=== PATIENT | male | born 1960 | race Caucasian/White ===

== ENCOUNTER 2023-05-28 09:36 | Inpatient (IN) | payer OTHER ==
[2023-05-28 10:41] LABS: Absolute Lymphocytes (CBC) 0.9 K/uL (0.7-4.9); Hematocrit 35.1 % (39.6-49.0); Lymphocytes % 16.6 % (15.3-44.8); MCV 93.4 fL (80-100); MPV 10.5 fL (7.6-11.3); Platelets 151 thou/uL (152-406); RBC Red Blood Cell Count 3.76 M/uL (4.33-5.43)
[2023-05-28 10:59] LABS: Protime INR 1.19
--- NOTE | 2023-05-28 11:30 | RAD REPORT ---
EXAM DESCRIPTION: RAD - Chest Single View - 05/28/2023 10:59 am CLINICAL HISTORY: DYSPNEA Chest pain. COMPARISON: No comparisons FINDINGS: Portable technique limits examination quality. Mild to moderate pulmonary edema is seen. The heart is significantly enlarged in size. Trace pleural fluid bilaterally. IMPRESSION: Mild to moderate CHF pattern noted.
[2023-05-28 11:38] LABS: Bilirubin Direct 0.3 mg/dL (0-0.2); Bilirubin Indirect, Calculated 0.1 mg/dL (0.2-0.8); Bilirubin Total 0.4 mg/dL (0.2-1.0); Magnesium 1.7 mg/dL (1.6-2.4); Potassium 3.8 mEq/L (3.5-5.1); Protein, Total 6.7 g/dL (6.4-8.2)
[2023-05-28 11:43] LABS: Troponin High Sensitivity 941.9 pg/mL (<58.9)
--- NOTE | 2023-05-28 12:06 | EDPHYS ---
Physician Documentation [facility] Name: Buddy Franklin Jr Age: 63 yrs Sex: Male : 1960 Arrival Date: 05/28/2023 Time: 09:36 Bed 5 Private MD: ED Physician Henry Lane HPI: 05/28 11:12 This 63 yrs old Male presents to ER via Wheelchair with complaints of Breathing sp3 Difficulty. 11:12 63-year-old male with a history of hypertension, CHF now presents to the ED with 3 to 4 sp3 days of shortness of breath and lower extremity edema. Patient is a poor historian and does not recollect his doctors or his medications. Patient denies headache, fever, URI symptoms, cough, chest pain, abdominal pain, nausea, vomiting, diarrhea, syncope, near syncope, focal neurological deficit or weakness, rash, known sick contacts, travel history, prolonged immobilization, or any other signs or symptoms on ROS at this time.. Historical: - Allergies: 09:49 PENICILLINS; jl7 09:49 steroids; jl7 - PMHx: 09:49 Congestive heart failure; Hypertensive disorder; jl7 - Immunization history:: Adult Immunizations unknown. - Social history:: Smoking status: Patient/guardian denies using tobacco. ROS: 11:13 Constitutional: Negative for fever, chills, and weight loss, Eyes: Negative for injury, sp3 pain, redness, and discharge, ENT: Negative for injury, pain, and discharge, Neck: Negative for injury, pain, and swelling, Abdomen/GI: Negative for abdominal pain, nausea, vomiting, diarrhea, and constipation, Back: Negative for injury and pain, Skin: Negative for injury, rash, and discoloration, Neuro: Negative for headache, weakness, numbness, tingling, and seizure, Psych: Negative for depression, anxiety, suicide ideation, homicidal ideation, and hallucinations, Allergy/Immunology: Negative for hives, rash, and allergies, Endocrine: Negative for neck swelling, polydipsia, polyuria, polyphagia, and marked weight changes, Hematologic/Lymphatic: Negative for swollen nodes, abnormal bleeding, and unusual bruising, 11:13 All other systems are negative, Exam: 11:13 Constitutional: This is a well developed, well nourished patient who is awake, alert, sp3 and in no acute distress. Head/Face: Normocephalic, atraumatic. Eyes: Pupils equal round and reactive to light, extra-ocular motions intact. Lids and lashes normal. Conjunctiva and sclera are non-icteric and not injected. Cornea within normal limits. Periorbital areas with no swelling, redness, or edema. Neck: Trachea midline, no thyromegaly or masses palpated, and no cervical lymphadenopathy. Supple, full range of motion without nuchal rigidity, or vertebral point tenderness. No Meningismus. Chest/axilla: Normal chest wall appearance and motion. Nontender with no deformity. No lesions are appreciated. Cardiovascular: Regular rate and rhythm with a normal S1 and S2. No gallops, murmurs, or rubs. Normal PMI, no JVD. No pulse deficits. Abdomen/GI: Soft, non-tender, with normal bowel sounds. No distension or tympany. No guarding or rebound. No evidence of tenderness throughout. Back: No spinal tenderness. No costovertebral tenderness. Full range of motion. Skin: Warm, dry with normal turgor. Normal color with no rashes, no lesions, and no evidence of cellulitis. Neuro: Awake and alert, GCS 15, oriented to person, place, time, and situation. Cranial nerves II-XII grossly intact. Motor strength 5/5 in all extremities. Sensory grossly intact. Cerebellar exam normal. Normal gait. Psych: Awake, alert, with orientation to person, place and time. Behavior, mood, and affect are within normal limits. 11:13 ECG was reviewed by the Attending Physician. EKG demonstrates normal sinus rhythm at 91 bpm with incomplete right bundle branch block mild ectopy leftward axis and nonspecific diffuse ST/T changes without evidence of acute ischemia. Old EKG pending. Vital Signs: 09:46 BP 127 / 90; Pulse 50; Resp 19; Temp 98.1; Pulse Ox 100% ; Weight 134.72 kg; jl7 11:18 BP 122 / 99; Pulse 86; Resp 18; Pulse Ox 100% on R/A; ph 14:00 BP 124 / 89; Pulse 82; Resp 19; Pulse Ox 100% on R/A; me1 14:20 BP 127 / 91; Pulse 89; Resp 20; Pulse Ox 100% on R/A; me1 15:30 BP 119 / 78; Pulse 76; Resp 20; Pulse Ox 99% on R/A; me1 MDM: 09:53 Patient medically screened. sp3 11:26 Data reviewed: vital signs, nurses notes, old medical records, lab test result(s), EKG, sp3 radiologic studies. ED course: 63-year-old male with difficulty breathing and CHF history. We will assess with laboratory values, his chest x-ray and EKG. Differential diagnosis includes CHF, ACS, pulmonary pathology, among others. Not highly suspicious for dissection, sepsis, shock or any abdominal pathology. Disposition pending work-up and patient course.. 05/28 09:53 Order name: Basic Metabolic Panel; Complete Time: 11:44 sp3 05/28 09:53 Order name: CBC with Diff; Complete Time: 11:36 sp3 05/28 09:53 Order name: LFT's; Complete Time: 11:44 sp3 05/28 09:53 Order name: Magnesium; Complete Time: 11:44 sp3 05/28 09:53 Order name: NT PRO-BNP; Complete Time: 11:44 sp3 05/28 09:53 Order name: PT-INR; Complete Time: 11:36 sp3 05/28 09:53 Order name: Troponin HS; Complete Time: 11:44 sp3 05/28 12:39 Order name: Basic Metabolic Panel EDMS 05/28 12:39 Order name: Basic Metabolic Panel EDMS 05/28 12:39 Order name: Basic Metabolic Panel EDMS 05/28 12:39 Order name: Basic Metabolic Panel EDMS 05/28 12:39 Order name: CBC with Automated Diff EDMS 05/28 12:39 Order name: CBC with Automated Diff EDMS 05/28 12:39 Order name: CBC with Automated Diff EDMS 05/28 12:39 Order name: CBC with Automated Diff EDMS 05/28 12:42 Order name: Troponin High Sensitivity EDMS 05/28 14:17 Order name: Ptt, Activated ph 05/28 14:49 Order name: PTT, Activated Partial Thromb EDMS 05/28 09:53 Order name: XRAY Chest (1 view); Complete Time: 11:36 sp3 05/28 12:39 Order name: Echo with Doppler EDMS 05/28 09:53 Order name: EKG; Complete Time: 09:54 sp3 05/28 12:39 Order name: CONS Physician Consult EDDC 05/28 12:41 Order name: EKG Electrocardiogram EDMS 05/28 12:42 Order name: EKG Electrocardiogram EDMS 05/28 09:53 Order name: Cardiac monitoring; Complete Time: 11:05 sp3 05/28 09:53 Order name: EKG - Nurse/Tech; Complete Time: 10:48 sp3 05/28 09:53 Order name: IV Saline Lock; Complete Time: 10:48 sp3 05/28 09:53 Order name: Labs collected and sent; Complete Time: 10:48 sp3 05/28 09:53 Order name: O2 Per Protocol; Complete Time: 10:48 sp3 05/28 09:53 Order name: O2 Sat Monitoring; Complete Time: 10:48 sp3 Administered Medications: 12:35 Drug: Furosemide IVP 40 mg IVP once; give over 2 minutes Route: IVP; Site: right kc6 antecubital; 12:47 Follow up: Response: No adverse reaction kc6 Disposition Summary: 05/28/23 12:05 Hospitalization Ordered Notes: Hospitalization Status: Inpatient Admission sp3 Provider: Mg Corrales sp3 Condition: Stable sp3 Problem: an acute exacerbation sp3 Symptoms: have worsened sp3 Bed/Room Type: Standard sp3 Location: Telemetry/MedSurg (Inpatient)(05/28/23 15:22) ja1 Room Assignment: 430(05/28/23 15:22) ja1 Diagnosis - CHF, NSTEMI sp3 Forms: - Medication Reconciliation Form sp3 - SBAR form sp3 - Leadership Thank You Letter sp3 Signatures: Dispatcher [employer] [facility] Julian Ward RN RN jl7 Andrea Emery RN RN ja1 Henry Lane MD MD sp3 Lina Lopes RN RN kc6 Patricia Dinh RN RN kb3 Corrections: (The following items were deleted from the chart) 15:17 12:05 Telemetry/MedSurg (Inpatient) sp3 kb3 15:17 12:05 sp3 kb3 15:22 15:17 [facility] ER HOLD kb3 ja1 15:22 15:17 ERHOLD- kb3 ja1
--- NOTE | 2023-05-28 12:06 | ER ---
Nurse's Notes [facility] Name: Buddy Franklin Jr Age: 63 yrs Sex: Male : 1960 Arrival Date: 05/28/2023 Time: 09:36 Bed 5 Private MD: Diagnosis: CHF, NSTEMI Presentation: 05/28 09:46 Chief complaint: Patient states: Difficulty breathing, hx of CHF, reports increased jl7 difficulty when laying down. Coronavirus screen: Client presents with at least one sign or symptom that may indicate coronavirus-19. Ebola Screen: No symptoms or risks identified at this time. Initial Sepsis Screen: Does the patient meet any 2 criteria? No. Patient's initial sepsis screen is negative. Does the patient have a suspected source of infection? No. Patient's initial sepsis screen is negative. Risk Assessment: Do you want to hurt yourself or someone else? Patient reports no desire to harm self or others. Onset of symptoms was 2019. 09:46 Method Of Arrival: Wheelchair jl 09:46 Acuity: MORIAH 2 jl7 Historical: - Allergies: 09:49 PENICILLINS; jl7 09:49 steroids; jl7 - PMHx: 09:49 Congestive heart failure; Hypertensive disorder; jl7 - Immunization history:: Adult Immunizations unknown. - Social history:: Smoking status: Patient/guardian denies using tobacco. Screenin:02 [facility] ED Fall Risk Assessment (Adult) History of falling in the last 3 months, ph including since admission No falls in past 3 months (0 pts) Score/Fall Risk Level 0 - 2 = Low Risk Oriented to surroundings, Maintained a safe environment, Provided non-skid footwear, Hourly rounding (assess needs \T\ fall precautionary measures) done. Abuse screen: Denies threats or abuse. Denies injuries from another. Nutritional screening: No deficits noted. Tuberculosis screening: No symptoms or risk factors identified. Assessment: 10:47 Reassessment: Pt transported to radiology via wheelchair. jl7 11:19 General: Appears in no apparent distress. comfortable, Behavior is calm, cooperative, ph appropriate for age. Pain: Denies pain. Neuro: Level of Consciousness is awake, alert, obeys commands, Oriented to person, place, time, situation. Cardiovascular: Reports shortness of breath. Respiratory: Reports shortness of breath at rest on exertion Airway is patent Respiratory effort is even, unlabored, Respiratory pattern is regular, symmetrical. 12:19 Reassessment: Patient appears in no apparent distress at this time. No changes from [facility] previously documented assessment. Patient and/or family updated on plan of care and expected duration. Pain level reassessed. Patient is alert, oriented x 3, equal unlabored respirations, skin warm/dry/pink. 12:46 Reassessment: please see [facility] for further charting. kc6 Vital Signs: 09:46 BP 127 / 90; Pulse 50; Resp 19; Temp 98.1; Pulse Ox 100% ; Weight 134.72 kg; jl7 11:18 BP 122 / 99; Pulse 86; Resp 18; Pulse Ox 100% on R/A; ph 14:00 BP 124 / 89; Pulse 82; Resp 19; Pulse Ox 100% on R/A; me1 14:20 BP 127 / 91; Pulse 89; Resp 20; Pulse Ox 100% on R/A; me1 15:30 BP 119 / 78; Pulse 76; Resp 20; Pulse Ox 99% on R/A; me1 ED Course: 09:40 Patient arrived in ED. rg4 09:49 Triage completed. jl7 09:49 Arm band placed on right wrist. jl7 09:[address] MD is Attending Physician. sp3 10:25 Initial lab(s) drawn, by ED staff, sent to lab. Inserted saline lock: 20 gauge in left jl7 antecubital area, using aseptic technique. Blood collected. inserted by , yarn dry room worker. 10:56 Patient placed in an exam room, on a stretcher. ll1 11:01 XRAY Chest (1 view) In Process Unspecified. EDMS 11:01 Alyx Medrano, RN is Primary Nurse. ph 11:04 Patient has correct armband on for positive identification. Placed in gown. Bed in low ph position. Call light in reach. Side rails up X2. Client placed on continuous cardiac and pulse oximetry monitoring. NIBP monitoring applied. Door closed. Noise minimized. Warm blanket given. 12:05 Mg Corrales MD is Hospitalizing Provider. sp3 12:47 No provider procedures requiring assistance completed. Patient admitted, IV remains in [facility] place. Administered Medications: 12:35 Drug: Furosemide IVP 40 mg IVP once; give over 2 minutes Route: IVP; Site: right kc6 antecubital; 12:47 Follow up: Response: No adverse reaction kc6 Medication: 11:02 VIS not applicable for this client. ph Outcome: 12:05 Decision to Hospitalize by Provider. sp3 12:47 Admitted to ER Hold. Please see [facility] for further documentation. kc6 12:47 Condition: stable 12:47 Instructed on the need for admit, 16:29 Admitted to Tele accompanied by tech, via wheelchair, room 430, with chart, Other with me1 heparin gtts on iv pump Report called to RADHA Arriaga 16:34 Patient left the ED. me1 Signatures: Dispatcher [employer] EDAlyx England RN RN Asia Heller rg4 Julian aWrd RN RN jl7 Regan Skinner RN RN ll1 Henry Lane MD MD sp3 Lina Lopes RN RN kc6 Tasia Lindsey RN RN me1
[2023-05-28] MEDS ORDERED: NITROGLYCERIN 0.4 MG/TAB SL PRN (12:30)
[2023-05-28] MEDS ORDERED: ASPIRIN 325 MG TAB PO ONE (12:30)
[2023-05-28] MEDS ORDERED: FUROSEMIDE 40 MG/4 ML VIAL ONE (12:41)
--- NOTE | 2023-05-28 12:41 | P.HP ---
Certification for Inpatient With expected LOS: <2 Midnights Patient will require the following post-hospital care: None Practitioner: I am a practitioner with admitting privileges, knowledge of patient current condition, hospital course, and medical plan of care. Services: Services provided to patient in accordance with Admission requirements found in Title 42 Section 412.3 of the Code of Federal Regulations Patient History Date of Service: 05/28/23 Reason for admission: NSTEMI, CHF History of Present Illness: Mr. Franklin, 63-year-old male with a history of congestive heart failure, hypertensive disorder presented to the emergency room with complaints of chest pain. Patient reports pain is like pressure on his chest. Pain rated 7 out of 10. Patient is positive for mild shortness of breath, lower extremity edema. Patient denies headache, fever, or weight loss. Patient denies dizziness, or falls. Patient reports that patient has been taking care of her his for first a few weeks and he got too tired. ED course Vital signs blood pressure 127/90, heart rate 50, respiration 19, temperature 98.1, pulse ox 100% on room air EKG showing sinus rhythm bradycardia with left axis deviation, nonspecific ST T wave changes, QT/QTc 444/546. Initial lab work significant for elevated BUN 28, creatinine 1.44, GFR 55, troponin I- 941.9, BNP 95488, platelet count 151. Chest x-ray showing mild to moderate pulmonary edema, CHF pattern. admitting the patient with the diagnosis of acute on chronic CHF, NSTEMI. Allergies Penicillins Allergy (Verified 05/28/23 13:13) unk steroid Allergy (Uncoded 05/28/23 13:14) unk Home medications list reviewed: Yes - Past Medical/Surgical History Diabetic: No -: chf -: Arthritis -: Depression -: Rheumatoid arthritis -: Gout - Social History Smoking Status: Never smoker Alcohol use: No CD- Drugs: No Review of Systems 10-point ROS is otherwise unremarkable Physical Examination - Physical Exam General: Alert, Oriented x3, Cachectic HEENT: Normocephalic, PERRLA Neck: 2+ carotid pulse no bruit Respiratory: Clear to auscultation bilaterally, Diminished (On the bases) Cardiovascular: Edema (Bilateral lower extremity pitting edema 3+) Capillary refill: <2 Seconds Gastrointestinal: Normal bowel sounds, Soft and benign, Non-distended Musculoskeletal: No clubbing, Swelling (Bilateral lower extremity edema) Integumentary: No rashes, No breakdown Neurological: Normal gait, Normal speech, Normal affect - Studies Laboratory Data (last 24 hrs) 05/28/23 05/28/23 05/28/23 11:00 10:32 10:32 WBC 5.30 Hgb 11.4 L Hct 35.1 L Plt Count 151 L PT 13.1 H INR 1.19 Sodium 140 Potassium 3.8 BUN 28 H Creatinine 1.44 H Glucose 126 H Magnesium 1.7 Total Bilirubin 0.4 AST 32 ALT 29 Alkaline Phosphatase 90 Assessment and Plan - Plan Assessment and plan Chest pain NSTEMI * Acute, chest pain for 2 to 3 weeks, patient came to the hospital as the symptoms are getting worse * Initial Troponin I- 941.9, BNP 66853, platelet count 151.Vital signs blood pressure 127/90, heart rate 50, respiration 19, temperature 98.1, pulse ox 100% on room air EKG showing sinus rhythm bradycardia with left axis deviation, nonspecific ST T wave changes, QT/QTc 444/546. Admitting the patient to telemetry * Cardiology consulted-trend troponin, EKG aspirin statin, nitroglycerin, morphine as needed and oxygen to maintain the SPO2 above 92% * Plan for heart cath will be evaluated by the crm marketing specialist Acute on Chronic Decompensated Systolic/Diastolic Congestive Heart Failure with Reduced/Preserved Ejection Fraction * Acute on chronic. Mr. Franklin presents with symptoms of shortness of breath, dyspnea on exertion, lower extremity edema, and orthopnea. On exam, Mr. Franklin demonstrates pulmonary crackles, bilateral lower extremity edema.Mr. Franklin 'sdry weight is 134.71 kg, on admission. At this time, will admit for diuresis and medical optimization. * Home meds including Entresto 2426 p.o. twice daily, bumetanide 18 2 mg daily - Consult Cardiology - recommendations appreciated - Ordered transthoracic echocardiogram - Diuresis with Lasix for today - Hold home Furosemide/Torsemide/Bumetanide - Continue home bumetanide 1019 1 mg 2 tablet daily - Daily weights - Strict I/O - Cardiac diet, 2 L fluid restriction, 2 g Na restriction Hypertension Chronic controlled resume home medication CKD 3A * Chronic, worsening BUN 28, creatinine 1.44, GFR 55. Previous GFR unknown, most likely due to chronic conditions including hypertension and CHF * We will renal dose the medications, avoid nephrotoxins, NSAIDs Gout Rheumatoid arthritis * Chronic controlled on multiple medications including DMARDs (allopurinol 300 mg, colchicine 0.6 mg, indomethacin, methotrexate, folic acid) * Will resume home meds after discussing with the crm marketing specialist Diet n.p.o. for right now DVT prophylaxis Heparin CODE STATUS Full code Discharge Plan: Home Plan to discharge in: 48 Hours - Advance Directives Does patient have a Living Will: No Does patient have a Durable POA for Healthcare: No - Code Status/Comfort Care Code Status Assessed: Yes (Full code) Code Status: Full Code Critical Care: No Time Spent Managing Pts Care (In Minutes): 55 (Minutes)
[2023-05-28] MEDS: MORPHINE 4 MG/ML SYR IV PRN (13:15)
[2023-05-28] MEDS ORDERED: ASPIRIN 81 MG CHEWABLE TABLET ONE (13:30)
[2023-05-28] MEDS ORDERED: MORPHINE 4 MG/ML SYR ONE (13:30)
[2023-05-28] MEDS: HEPARIN/D5W 25,000 UNIT/500 ML BAG IV PRN (15:55)
[2023-05-28] MEDS ORDERED: HEPARIN/D5W 25,000 UNIT/500 ML BAG IV ONE (16:02)
[2023-05-28] MEDS ORDERED: HEPARIN 5000 UNIT/ML 1 ML VIAL ONE (16:02)
[2023-05-28] MEDS ORDERED: FUROSEMIDE 40 MG/4 ML VIAL IV SCH (17:00)
[2023-05-28] MEDS ORDERED: BUMETANIDE 1 MG TABLET PO SCH (21:00)
[2023-05-28] MEDS: BUMETANIDE 2.5 MG/10 ML VIAL IV SCH (21:36)
[2023-05-28] MEDS: METOPROLOL TAR 50 MG TAB PO SCH (21:37)
[2023-05-28] MEDS: ATORVASTATIN 40 MG TAB PO SCH (21:37)
[2023-05-29 02:05] LABS: Absolute Lymphocytes (CBC) 1.1 K/uL (0.7-4.9); Hematocrit 34.3 % (39.6-49.0); Lymphocytes % 24.2 % (15.3-44.8); MPV 10.5 fL (7.6-11.3); Platelets 143 thou/uL (152-406); RBC Red Blood Cell Count 3.69 M/uL (4.33-5.43)
[2023-05-29 02:19] LABS: Potassium 3.7 mEq/L (3.5-5.1)
--- NOTE | 2023-05-29 07:58 | ECHO ---
HEIGHT: 6 ft 0 in WEIGHT: 297 lb 0 oz DATE OF STUDY: 05/28/[address]: Jose Rosenberg NP 2-DIMENSIONAL: YES M.MODE: YES DOPPLER: YES COLOR FLOW: YES TDS: PORTABLE: YES DEFINITY: BUBBLE STUDY: DIAGNOSIS: CONGEATIVE HEART FAILURE CARDIAC HISTORY: CATHERIZATION: SURGERY: PROSTHETIC VALVE: PACEMAKER: MEASUREMENTS (cm) DIASTOLIC (NORMALS) SYSTOLIC (NORMALS) IVSd 1.2 (0.6-1.2) LA Diam 3.7 (1.9-4.0) LVEF 25-30% LVIDd 5.3 (3.5-5.7) LVIDs 5.0 (2.0-3.5) %FS 6% LVPWd 1.2 (0.6-1.2) Ao Diam 3.3 (2.0-3.7) 2 DIMENSIONAL ASSESSMENT: RIGHT ATRIUM: NORMAL LEFT ATRIUM: NORMAL RIGHT VENTRICLE: NORMAL LEFT VENTRICLE: DEPRESSED EJECTION FRACTION TRICUSPID VALVE: MODERATE TRICUSPID REGURGITATION MITRAL VALVE: MODERATE MITRAL REGURGITATION PULMONIC VALVE: NORMAL AORTIC VALVE: NORMAL PERICARDIAL EFFUSION: NONE AORTIC ROOT: NORMAL LEFT VENTRICULAR WALL MOTION: SEVERE GLOBAL HYPOKINESIS DOPPLER/COLOR FLOW: SEE BELOW COMMENTS: 1. SEVERELY DEPRESSED LEFT VENTRICULAR EJECTION FRACTION 25-30% 2. SEVERE GLOBAL HYPOKINESIS 3. SEVERE DIASTOLIC DYSFUNCTION 4. MODERATE MITRAL REGURGITATION 5. MODERATE TRICUSPID REGURGITATION 6. SEVERE PULMONARY HYPERTENSION WITH RIGHT VENTRICULAR SYSTOLIC PRESSURE GREATER THAN 60 mmHg. TECHNOLOGIST: JESSICA RUSSO
[2023-05-29] MEDS: METOPROLOL TAR 50 MG TAB PO SCH ×2 (09:05→20:23)
[2023-05-29] MEDS: BUMETANIDE 2.5 MG/10 ML VIAL IV SCH ×2 (09:05→20:24)
[2023-05-29] MEDS: ASPIRIN EC 81 MG TAB PO SCH (09:05)
[2023-05-29] MEDS ORDERED: Magnesium Sulfate 2gm IVPB 2 G/50 ML BAG IV ONE (14:31)
[2023-05-29] MEDS: HEPARIN/D5W 25,000 UNIT/500 ML BAG IV PRN (14:54)
--- NOTE | 2023-05-29 15:41 | EKG ---
Test Date: 2023-05-29 Test Time: 12:48:52 Vice President: RISA MEASUREMENT RESULTS: Intervals: Rate: 78 CA: 188 QRSD: 140 QT: 448 QTc: 510 [place]: P: 84 CA: 188 QRS: -67 T: 107 INTERPRETIVE STATEMENTS: Sinus rhythm with occasional premature ventricular complexes and fusion complexes Left axis deviation Nonspecific intraventricular block T wave abnormality, consider lateral ischemia Abnormal ECG Compared to ECG 05/28/2023 14:22:42 T-wave abnormality now present Possible ischemia now present Right bundle-branch block no longer present Myocardial infarct finding no longer present Electronically Signed On 05-29-23 15:40:03 CDT by Abisai Padron
--- NOTE | 2023-05-29 15:47 | EKG ---
Test Date: 2023-05-28 Test Time: 14:22:42 [employer] Analyst: MEASUREMENT RESULTS: Intervals: Rate: 83 MI: 174 QRSD: 142 QT: 444 QTc: 521 [place]: P: 52 MI: 174 QRS: -66 T: 99 INTERPRETIVE STATEMENTS: Sinus rhythm with occasional premature ventricular complexes and fusion complexes Left axis deviation Right bundle branch block Anterior infarct, age undetermined Abnormal ECG Compared to ECG 05/28/2023 10:23:30 Fusion complex(es) now present Ventricular premature complex(es) now present Right bundle-branch block now present Myocardial infarct finding still present Electronically Signed On 05-29-23 15:42:50 CDT by Abisai Padron
[2023-05-29] MEDS: MORPHINE 4 MG/ML SYR IV PRN (16:09)
[2023-05-29] MEDS ORDERED: LOPERAMIDE HCL 2 MG CAPSULE PO ONE (17:00)
--- NOTE | 2023-05-29 18:13 | P.PN ---
Subjective Date of Service: 05/29/23 Chief Complaint: NSTEMI, CHF No acute events overnight. He reports intermittent chest pain and shortness of breath. He reports orthopnea and lower extremity edema. He states that he has had a cardiac catheterization in 2020, which was "normal." He denies any wheezing or cough. Review of Systems 10-point ROS is otherwise unremarkable Respiratory: Shortness of Breath Cardiovascular: Chest Pain, Orthopnea, Edema Physical Examination - Vital Signs Temperature: 96.9 F Blood Pressure: 135/96 Pulse: 94 Respirations: 16 Pulse Ox (%): 100 - Physical Exam General: Alert, In no apparent distress, Oriented x3 HEENT: Atraumatic, Mucous membr. moist/pink, Sclerae nonicteric Neck: JVD distended Respiratory: Diminished, Crackles/rales (bibasilar) Cardiovascular: Regular rate/rhythm, Normal S1 S2, No gallops, No rubs, No murmurs, Edema (3+ BLE) Gastrointestinal: Normal bowel sounds, Soft and benign, Non-distended, No tenderness, No rebound, No guarding Musculoskeletal: No clubbing Integumentary: No rashes Neurological: Normal speech, Normal affect Assessment And Plan - Plan # Acute on Chronic Decompensated Systolic/Diastolic Congestive Heart Failure with Reduced Ejection Fraction # Several Pulmonary Hypertension # Moderate Mitral/Tricuspid Regurgitation - Consult Cardiology and spoke with Dr. Puente - Recommended IV bumetanide - NT-Pro BNP = 15,219 - Chest x-ray = "mild to moderate CHF pattern noted." - Transthoracic echocardiogram = "1. severely depressed left ventricular ejection fraction 25-30% 2. severe global hypokinesis 3. severe diastolic dysfunction 4. moderate mitral regurgitation 5. moderate tricuspid regurgitation 6. severe pulmonary hypertension with right ventricular systolic pressure greater than 60 mmHg." - Continue home metoprolol - Daily weights - Strict I/O - Cardiac diet, 1.5 L fluid restriction, 2 g Na restriction # Suspect Type II Non-ST Segment Elevation Myocardial Infarction (Demand Ischemia) due to above # Hypertension - Evaluation thus far: - EKG: without STEMI criteria, trend - Serial troponin: 941.9 -> 971.8 -> 851.8 -> 953.3 - Chest x-ray = "mild to moderate CHF pattern noted." - Transthoracic echocardiogram = "1. severely depressed left ventricular ejection fraction 25-30% 2. severe global hypokinesis 3. severe diastolic dysfunction 4. moderate mitral regurgitation 5. moderate tricuspid regurgitation 6. severe pulmonary hypertension with right ventricular systolic pressure greater than 60 mmHg." - Management plan: - Consult Cardiology and spoke with Dr. Puente - Recommended heparin drip - Continue aspirin, atorvastatin, metoprolol - If CAD is confirmed, plan to start NICO-inhibitor/ARB as tolerated # Chronic Kidney Disease Stage III - Creatinine stable - Urinalysis pending - Monitor creatinine and urine output - Obtain renal ultrasound if worsening - Renally dose medications # Rheumatoid Arthritis # Depression # Gout - Reconcile home medications once verified Mg Corrales M.D.
--- NOTE | 2023-05-29 20:10 | CON ---
Date of Consultation: 05/29/2023 Reason For Consultation: Elevated troponin and heart failure. History Of Present Illness: 63-year-old male, history of congestive heart failure and hypertension, presented to the emergency room with shortness of breath, lower extremity edema, and chest pain, pres sure like. He said that he had a cardiac catheterization at [facility] and he was told that there were no blockages within the recent past. He denies having active chest pain right now. Past Medical History: As outlined above in the HPI. Medication: Refer reconciliation sheet for detailed list. Allergies: PENICILLIN. Family History: No mention of coronary artery disease or cancer. Social History: Does not smoke or drink. Does not use any drugs. Review of Systems: All systems reviewed are negative except as mentioned in the HPI. Physical Examination: Vital Signs: Reviewed. Head and Neck: Pupils are equal, reactive to light. Intact eye movements. No JVD. No cervical ismael nopathy. Neck: Supple. Thyroid is not enlarged. Lungs: Clear to auscultation bilaterally. No rhonchi, wheezing, or crackles. No accessory muscle u se. Heart: Regular rate and rhythm. No extra sounds. Abdomen: Soft, nontender. Bowel sounds positive. No organomegaly. No rigidity or rebound. Extremities: No clubbing, cyanosis. Positive edema. Neurologic: Alert, awake, oriented x3. No acute focal deficits appreciated. Investigations: Troponin 900 and then went down to 800 and then 900 again. BUN 29, creatinine 1.39. NT-proBNP is 15,000 and his hemoglobin is 11.2. Assessment/recommendation: 1.Acute on chronic systolic heart failure exacerbation. Agree with IV diuresis with Lasix 40 mg q.1 2 hours. Monitor BUN, creatinine, electrolytes. 2.Elevated troponin with chest pain. He claims a history of coronary angiogram being normal. We wi ll try to obtain records. I do not believe this is an acute coronary syndrome. Likely, this is darlyn nd ischemia. However, recommend aspirin and continue beta-francois and statin. 3.Dyslipidemia. Continue statin. Further recommendation will be made after we get the records from [facility]. SR/MODL Voice ID: [id number] Report ID: [id number]
[2023-05-29] MEDS: ATORVASTATIN 40 MG TAB PO SCH (20:23)
[2023-05-30 06:45] LABS: Absolute Lymphocytes (CBC) 1.1 K/uL (0.7-4.9); Hematocrit 35.2 % (39.6-49.0); MCV 92.7 fL (80-100); MPV 10.7 fL (7.6-11.3); Platelets 153 thou/uL (152-406)
[2023-05-30 07:04] LABS: Magnesium 1.6 mg/dL (1.6-2.4); Phosphorus 4.1 mg/dL (2.5-4.9); Potassium 3.6 mEq/L (3.5-5.1)
[2023-05-30 07:30] LABS: Troponin High Sensitivity 858.1 pg/mL (<58.9)
[2023-05-30] MEDS: METOPROLOL TAR 50 MG TAB PO SCH ×2 (08:28→20:45)
[2023-05-30] MEDS: ASPIRIN EC 81 MG TAB PO SCH (08:28)
[2023-05-30] MEDS: BUMETANIDE 2.5 MG/10 ML VIAL IV SCH ×2 (08:35→20:45)
[2023-05-30] MEDS: HEPARIN/D5W 25,000 UNIT/500 ML BAG IV PRN (14:11)
[2023-05-30] MEDS ORDERED: METOLAZONE 5 MG TABLET PO ONE (15:00)
--- NOTE | 2023-05-30 15:31 | P.PN ---
Subjective Date of Service: 05/30/23 Chief Complaint: NSTEMI, CHF No new events. He reports that his breathing is improving. His net I/O since admission is -1480 mL. He continues to experience orthopnea and lower extremity edema. He denies any chest pain this morning. Review of Systems 10-point ROS is otherwise unremarkable Cardiovascular: Orthopnea, Edema Physical Examination - Vital Signs Temperature: 97.4 F Blood Pressure: 134/91 Pulse: 91 Respirations: 20 Pulse Ox (%): 100 - Physical Exam General: Alert, In no apparent distress, Oriented x3 HEENT: Atraumatic, Mucous membr. moist/pink, Sclerae nonicteric Neck: JVD distended Respiratory: Crackles/rales (bibasilar) Cardiovascular: Regular rate/rhythm, Edema (2-3+ BLE), Systolic murmur Gastrointestinal: Normal bowel sounds, Soft and benign, No tenderness Musculoskeletal: No clubbing Integumentary: No rashes Neurological: Normal speech, Normal affect Assessment And Plan - Plan # Acute on Chronic Decompensated Systolic/Diastolic Congestive Heart Failure with Reduced Ejection Fraction # Severe Pulmonary Hypertension # Moderate Mitral/Tricuspid Regurgitation - Consult Cardiology and he was evaluated by Dr. Puente - Recommended IV bumetanide + metolazone x 1 - NT-Pro BNP = 15,219 - Chest x-ray = "mild to moderate CHF pattern noted." - Transthoracic echocardiogram = "1. severely depressed left ventricular ejection fraction 25-30% 2. severe global hypokinesis 3. severe diastolic dysfunction 4. moderate mitral regurgitation 5. moderate tricuspid regurgitation 6. severe pulmonary hypertension with right ventricular systolic pressure greater than 60 mmHg." - Continue home metoprolol - Daily weights - Strict I/O - Cardiac diet, 1.5 L fluid restriction, 2 g Na restriction # Suspect Type II Non-ST Segment Elevation Myocardial Infarction (Demand Ischemia) due to above # Hypertension - Evaluation thus far: - EKG: without STEMI criteria, trend - Serial troponin: 941.9 -> 971.8 -> 851.8 -> 953.3 - Chest x-ray = "mild to moderate CHF pattern noted." - Transthoracic echocardiogram = "1. severely depressed left ventricular ejection fraction 25-30% 2. severe global hypokinesis 3. severe diastolic dysfunction 4. moderate mitral regurgitation 5. moderate tricuspid regurgitation 6. severe pulmonary hypertension with right ventricular systolic pressure greater than 60 mmHg." - Management plan: - Consult Cardiology and he was evaluated by Dr. Puente - Discontinued heparin drip - Continue aspirin, atorvastatin, metoprolol - If CAD is confirmed, plan to start NICO-inhibitor/ARB as tolerated # Chronic Kidney Disease Stage III - Creatinine stable - Urinalysis pending - Monitor creatinine and urine output - Obtain renal ultrasound if worsening - Renally dose medications # Rheumatoid Arthritis # Depression # Gout - Reconcile home medications once verified Mg Corrales M.D.
--- NOTE | 2023-05-30 16:07 | P.PN ---
Subjective Date of Service: 05/30/23 Chief Complaint: NSTEMI, CHF Subjective: No new changes, Doing well Review of Systems 10-point ROS is otherwise unremarkable Physical Examination - Vital Signs Temperature: 97.4 F Blood Pressure: 134/91 Pulse: 91 Respirations: 20 Pulse Ox (%): 100 - Physical Exam General: Alert, In no apparent distress, Oriented x3 HEENT: Atraumatic Neck: Supple Respiratory: Clear to auscultation bilaterally Cardiovascular: Regular rate/rhythm Gastrointestinal: Soft and benign Assessment And Plan - Plan 1. CHF: Acute on chronic, systolic and diastolic, nonischemic, patient has coronary angiogram done about 3 years ago and showed normal coronaries. Continue Bumex 2 mg IV twice daily, give 1 dose of metolazone 10 mg, and likely will switch to Bumex p.o. tomorrow and possible discharge tomorrow. 2. Platelet troponin: Type II [place] from CHF and not ACS, will discontinue heparin drip
[2023-05-30] MEDS: ATORVASTATIN 40 MG TAB PO SCH (20:45)
[2023-05-30] MEDS: MORPHINE 4 MG/ML SYR IV PRN (20:49)
[2023-05-30] MEDS ORDERED: Magnesium Sulfate 2gm IVPB 2 G/50 ML BAG IV ONE (21:44)
[2023-05-31 02:18] LABS: C.diff Antigen/Toxin Ag pos : Tox neg (NEG : NEG)
[2023-05-31 06:41] LABS: Absolute Lymphocytes (CBC) 1.2 K/uL (0.7-4.9); Hematocrit 34.9 % (39.6-49.0); Lymphocytes % 20.7 % (15.3-44.8); MPV 10.6 fL (7.6-11.3); Platelets 170 thou/uL (152-406)
[2023-05-31 06:53] LABS: Magnesium 1.7 mg/dL (1.6-2.4); Potassium 3.4 mEq/L (3.5-5.1)
[2023-05-31] MEDS: METOPROLOL TAR 50 MG TAB PO SCH ×2 (08:08→20:46)
[2023-05-31] MEDS: ASPIRIN EC 81 MG TAB PO SCH (08:08)
[2023-05-31] MEDS: BUMETANIDE 2.5 MG/10 ML VIAL IV SCH ×2 (08:08→21:00)
[2023-05-31] MEDS ORDERED: Magnesium Sulfate 2gm IVPB 2 G/50 ML BAG IV ONE (09:02)
[2023-05-31] MEDS ORDERED: POTASSIUM CL SA 10 MEQ TAB PO ONE (09:15)
--- NOTE | 2023-05-31 11:00 | P.PN ---
Subjective Date of Service: 05/31/23 Chief Complaint: NSTEMI, CHF This morning, he reports that his breathing and swelling have improved signifcantly. However, he reports having 10 watery bowel movements yesterday. His C. Difficile stool antigen was positive. PO vancomycin started and Infectious Diseases was consulted. He denies any chest pain this morning. Review of Systems 10-point ROS is otherwise unremarkable Respiratory: Shortness of Breath Cardiovascular: Orthopnea, Edema Gastrointestinal: Diarrhea Physical Examination - Vital Signs Temperature: 97.1 F Blood Pressure: 137/75 Pulse: 63 Respirations: 16 Pulse Ox (%): 98 - Physical Exam General: Alert, In no apparent distress, Oriented x3 HEENT: Atraumatic, Mucous membr. moist/pink, Sclerae nonicteric Neck: JVD not distended Respiratory: Diminished, Crackles/rales (bibasilar) Cardiovascular: Regular rate/rhythm, No murmurs, Edema (2+ BLE) Gastrointestinal: Normal bowel sounds, Soft and benign, Non-distended, No tenderness, No rebound, No guarding Integumentary: No rashes Neurological: Normal speech, Normal affect Assessment And Plan - Plan # Acute on Chronic Decompensated Systolic/Diastolic Congestive Heart Failure with Reduced Ejection Fraction # Severe Pulmonary Hypertension # Moderate Mitral/Tricuspid Regurgitation - Consult Cardiology and he was evaluated by Dr. Puente - IV diuresis per Cardiology - NT-Pro BNP = 15,219 - Chest x-ray = "mild to moderate CHF pattern noted." - Transthoracic echocardiogram = "1. severely depressed left ventricular ejection fraction 25-30% 2. severe global hypokinesis 3. severe diastolic dysfunction 4. moderate mitral regurgitation 5. moderate tricuspid regurgitation 6. severe pulmonary hypertension with right ventricular systolic pressure greater than 60 mmHg." - Continue home metoprolol - Daily weights - Strict I/O - Cardiac diet, 1.5 L fluid restriction, 2 g Na restriction # Suspect Type II Non-ST Segment Elevation Myocardial Infarction (Demand Ischemia) due to above # Hypertension - Evaluation thus far: - EKG: without STEMI criteria, trend - Serial troponin: 941.9 -> 971.8 -> 851.8 -> 953.3 - Chest x-ray = "mild to moderate CHF pattern noted." - Transthoracic echocardiogram = "1. severely depressed left ventricular ejection fraction 25-30% 2. severe global hypokinesis 3. severe diastolic dysfunction 4. moderate mitral regurgitation 5. moderate tricuspid regurgitation 6. severe pulmonary hypertension with right ventricular systolic pressure greater than 60 mmHg." - Management plan: - Consult Cardiology and he was evaluated by Dr. Puente - Continue aspirin, atorvastatin, metoprolol - If CAD is confirmed, plan to start NICO-inhibitor/ARB as tolerated # Clostridioides Difficile Colitis - Reports having 10 watery bowel movements yesterday. - C. Difficile antigen positive, but toxin negative - Consulted Infectious Diseases - Started vancomycin # KDIGO Stage I Acute Kidney Injury on Chronic Kidney Disease Stage III - Likely cardiorenal syndrome - Creatinine: 1.44 -> 1.38 -> 1.22 -> 1.11 - Urinalysis pending - Monitor creatinine and urine output - Obtain renal ultrasound if worsening - Renally dose medications # Rheumatoid Arthritis # Depression # Gout - Reconcile home medications once verified Mg Corrales M.D.
[2023-05-31] MEDS: VANCOMYCIN ORAL SOLN 250 MG/5 ML OSYR PO SCH ×3 (11:22→23:53)
--- NOTE | 2023-05-31 12:54 | P.PN ---
Subjective Date of Service: 05/31/23 Chief Complaint: NSTEMI, CHF Subjective: No new changes, Doing well Physical Examination - Vital Signs Temperature: 97.1 F Blood Pressure: 137/75 Pulse: 63 Respirations: 16 Pulse Ox (%): 98 - Physical Exam General: In no apparent distress HEENT: PERRLA Neck: JVD not distended Respiratory: Clear to auscultation bilaterally Cardiovascular: Regular rate/rhythm Gastrointestinal: No tenderness Neurological: Normal speech Assessment And Plan - Plan 1. CHF: Acute on chronic, systolic and diastolic, nonischemic, patient has coronary angiogram done about 3 years ago and showed normal coronaries. Switch Bumex to 2 mg PO twice daily. Has PVCs , replace Magnesium and Potassium, will order LifeVest. d/w Pt and nurse. 2. Elevated troponin: Type II [place] from CHF and not ACS, will discontinue heparin drip 3. Hypokalemia and Hypomagnesemia: replace both.
[2023-05-31] MEDS: ATORVASTATIN 40 MG TAB PO SCH (20:46)
[2023-05-31] MEDS: MORPHINE 4 MG/ML SYR IV PRN (21:18)
[2023-06-01 04:47] LABS: Magnesium 1.8 mg/dL (1.6-2.4); Potassium 3.9 mEq/L (3.5-5.1)
[2023-06-01] MEDS: VANCOMYCIN ORAL SOLN 250 MG/5 ML OSYR PO SCH ×3 (05:19→17:22)
--- NOTE | 2023-06-01 05:37 | P.PN ---
Date of Service: 06/01/23 Subjective: Physical Exam: Vitals: reviewed GEN: Alert, oriented, NAD HEENT: Normal conjunctiva, sclera anicteric CV: Regular rate & rhythm, 2+BLE edema Pulm: Diminished, Crackles/rales (bibasilar) ABD: Soft, nontender, nondistended MSK: No joint tenderness Integumentary: No rashes Neuro: Normal speech, normal affect Problem List: Acute on Chronic Decompensated Systolic/Diastolic CHF with Reduced EF NSTEMI Severe Pulmonary Hypertension Moderate Mitral/Tricuspid Regurgitation Hypertension Clostridioides Difficile Colitis CHUCK on CKD3 Rheumatoid Arthritis Depression Gout Plan: Cardiology consulted continue bumex echo: 25-30% EF, severe global hypokinesis, severe diastolic dysfunction, moderate MR, moderate TR, severe pulm htn Daily weights and Strict I/O Cardiac diet, 1.5 L fluid restriction, 2 g Na restriction EKG without STEMI criteria Troponins elevated; 941.9 -> 971.8 -> 851.8 -> 953.3 Continue aspirin, atorvastatin, metoprolol PRN nitroglycerin Reports having 10 watery bowel movements 05/30 C. Difficile antigen positive, but toxin negative ID consulted continue PO vancomycin Monitor renal function Renally dose medications Confirm home medications, restart as appropriate
[2023-06-01] MEDS: METOPROLOL TAR 50 MG TAB PO SCH ×2 (09:00→21:13)
[2023-06-01] MEDS ORDERED: Magnesium Sulfate 2gm IVPB 2 G/50 ML BAG IV ONE (09:01)
--- NOTE | 2023-06-01 09:36 | P.CNS ---
Date of Consult: 06/01/23 Reason for Consult: c.diff Chief Complaint: NSTEMI, CHF History of Present Illness: Patient is a 63-year-old male with a past medical history of congestive heart failure, hypertension, RA, gout who presented to the ED with complaints of chest pain, shortness of breath and lower extremity swelling. Patient was admitted for acute on chronic decompensated systolic/diastolic congestive heart failure. Patient was also found to be positive for C. difficile. Infectious disease was consulted. Allergies Penicillins Allergy (Verified 05/28/23 13:13) unk steroid Allergy (Uncoded 05/28/23 13:14) unk Home medications list reviewed: Yes Home Medications: Allopurinol 1 tab PO DAILY 05/28/23 Amitriptyline HCl 1 tab PO BEDTIME 05/28/23 Bumetanide 2 mg PO DAILY 05/28/23 Colchicine 1 tab PO DAILY 05/28/23 Diclofenac Na [Voltaren D.r*] 1 tab PO BID 05/28/23 Ergocalciferol (Vitamin D2) [Vitamin D2] 1 tab PO DAILY 05/28/23 Folic Acid 1 tab PO DAILY 05/28/23 Indomethacin 1 tab PO TID 05/28/23 Magnesium Oxide [Magnesium] 1 tab PO DAILY 05/28/23 Methotrexate Sodium [Methotrexate] 1 tab PO TID 05/28/23 Metoprolol Succinate [Toprol Xl*] 1 tab PO DAILY 05/28/23 Potassium Chloride 1 packet PO BID 05/28/23 Sacubitril/Valsartan [Entresto 24 mg-26 mg Tablet] 1 tab PO DAILY 05/28/23 Ubidecarenone [Co Q-10] 1 tab PO DAILY 05/28/23 - Past Medical/Surgical History Diabetic: No -: chf -: Arthritis -: Depression -: Rheumatoid arthritis -: Gout -: HTN -: SHOULDER LEFT -: LEFT TOE AMPUTATION -: ANGIOGRAM CARDIAC [facility] [place] 2021 - Social History Alcohol use: No CD- Drugs: No Caffeine use: Yes Place of Residence: Home Review of Systems General: Weakness Respiratory: Shortness of Breath Gastrointestinal: Abdominal Pain Physical Examination Temp Pulse Resp BP Pulse Ox 97.3 F 105 H 16 99/68 95 06/01/23 08:00 06/01/23 08:00 06/01/23 08:00 06/01/23 08:00 06/01/23 08:00 General: Alert, In no apparent distress, Oriented x3 HEENT: Atraumatic, Normocephalic Respiratory: Normal air movement, Diminished, Other (on room air) Cardiovascular: Regular rate/rhythm, Edema (BLE) Gastrointestinal: Normal bowel sounds, Tenderness (mid-lower abdomen) Integumentary: No rashes Neurological: Normal speech, Normal tone Laboratory data -Reviewed Microbiology data -Reviewed Imagings Data: -Reviewed Conclusions/Impression: Problem list C. difficile colitis Acute on chronic systolic/diastolic CHF Severe pulmonary hypertension Moderate mitral and tricuspid regurgitation NSTEMI Hypertension Rheumatoid arthritis Gout C. difficile colitis -C. difficile antigen positive, toxin negative -Patient reported having ~10 liquid bowel movements on 05/30 -Started on vancomycin PO 05/31 - No previous history of C.diff in the past WBC WNL Afebrile. Acute on chronic systolic/diastolic CHF NSTEMI Pulmonary hypertension -Cardiology following Recommendations - C.diff: Continue with Vancomycin PO x 10 days (05/31-05/09) - Monitor for worsening abdominal pain and diarrhea - Continue with supportive care - Follow up with cardiology as outpatient Case discussed with Giovana Avilez
[2023-06-01] MEDS: ASPIRIN EC 81 MG TAB PO SCH (09:55)
[2023-06-01] MEDS: BUMETANIDE 2.5 MG/10 ML VIAL IV SCH ×2 (09:56→21:00)
[2023-06-01] MEDS ORDERED: KCL 20 MEQ/100 mL IVPB 20 MEQ/100 ML BAG IV ONE (10:00)
[2023-06-01] MEDS: ATORVASTATIN 40 MG TAB PO SCH (21:13)
[2023-06-01] MEDS: MORPHINE 4 MG/ML SYR IV PRN (21:40)
[2023-06-02] MEDS: VANCOMYCIN ORAL SOLN 250 MG/5 ML OSYR PO SCH ×4 (02:02→18:00)
[2023-06-02] MEDS ORDERED: LACTOBACILLUS/ACIDOPHILUS TAB PO SCH (08:00)
--- NOTE | 2023-06-02 08:04 | EKG ---
Test Date: 2023-05-28 Test Time: 10:23:30 Coding Clerks Supervisor: GALE MEASUREMENT RESULTS: Intervals: Rate: 91 OK: 174 QRSD: 140 QT: 444 QTc: 546 [place]: P: 10 OK: 174 QRS: -63 T: 78 INTERPRETIVE STATEMENTS: Sinus rhythm with PVCs Left axis deviation Nonspecific intraventricular block Cannot rule out Anteroseptal infarct, age undetermined Abnormal ECG Compared to ECG 12/31/2006 14:15:00 Left-axis deviation now present Myocardial infarct finding now present Left anterior fascicular block no longer present Electronically Signed On 06-02-23 07:56:31 CDT by Abisai Padron
[2023-06-02] MEDS: METOPROLOL TAR 50 MG TAB PO SCH ×2 (09:00→20:24)
[2023-06-02] MEDS: BUMETANIDE 2.5 MG/10 ML VIAL IV SCH ×2 (09:00→20:25)
[2023-06-02] MEDS: LACTOBACILLUS/ACIDOPHILUS TAB PO SCH (09:12)
[2023-06-02] MEDS: ASPIRIN EC 81 MG TAB PO SCH (09:12)
--- NOTE | 2023-06-02 13:36 | P.PN ---
Date of Service: 06/02/23 Chief Complaint: NSTEMI, CHF Subjective: No acute events reported overnight. In no apparent distress. Denies any new or worsening complaints. Reports diarrhea resolved. Physical Examination Temp Pulse Resp BP Pulse Ox 97.8 F 93 H 14 102/84 98 06/02/23 07:20 06/02/23 07:20 06/02/23 07:20 06/02/23 07:20 06/02/23 07:20 General: Alert, In no apparent distress, Oriented x3 HEENT: Atraumatic, Normocephalic Respiratory: Normal air movement, Diminished. On room air. Cardiovascular: Regular rate/rhythm. BLE edema. Gastrointestinal: Normal bowel sounds, Tenderness (mid-lower abdomen) Integumentary: No rashes Neurological: Normal speech, Normal tone Laboratory data -Reviewed Microbiology data -Reviewed Imagings Data: -Reviewed Medications List: Reviewed Assessment and Plan Problem list C. difficile colitis Acute on chronic systolic/diastolic CHF Severe pulmonary hypertension Moderate mitral and tricuspid regurgitation NSTEMI Hypertension Rheumatoid arthritis Gout C. difficile colitis -C. difficile antigen positive, toxin negative -Patient reported having ~10 liquid bowel movements on 05/30 -Started on vancomycin PO 05/31 - No previous history of C.diff in the past WBC WNL Afebrile. Acute on chronic systolic/diastolic CHF NSTEMI Pulmonary hypertension -Cardiology following Recommendations - C.diff: Continue with Vancomycin PO x 10 days (05/31-05/09). Improvement in diarrhea and abdominal pain. - Continue with supportive care - Follow up with cardiology as outpatient Case discussed with Giovana Avilez
[2023-06-02] MEDS: ATORVASTATIN 40 MG TAB PO SCH (20:24)
[2023-06-02] MEDS: MORPHINE 4 MG/ML SYR IV PRN (20:33)
[2023-06-03] MEDS: VANCOMYCIN ORAL SOLN 250 MG/5 ML OSYR PO SCH ×4 (00:57→16:27)
[2023-06-03] MEDS: LACTOBACILLUS/ACIDOPHILUS TAB PO SCH (08:00)
[2023-06-03] MEDS: ASPIRIN EC 81 MG TAB PO SCH (09:19)
[2023-06-03] MEDS: METOPROLOL TAR 50 MG TAB PO SCH ×2 (09:19→21:12)
[2023-06-03] MEDS: BUMETANIDE 2.5 MG/10 ML VIAL IV SCH (09:20)
--- NOTE | 2023-06-03 09:20 | P.PN ---
Date of Service: 06/03/23 Chief Complaint: NSTEMI, CHF Subjective: Patient ambulating around in room. In no apparent distress. Breathing comfortably on room air. No acute events reported overnight. + abdominal cramping, intermittent + diarrhea He reports normal stool 24-48 hours ago, now with diarrhea again and intermittent abdominal cramping. Physical Examination Temp Pulse Resp BP Pulse Ox 99.4 F 102 H 17 117/86 90 L 06/03/23 08:00 06/03/23 08:00 06/03/23 08:00 06/03/23 08:00 06/03/23 08:00 General: Alert, In no apparent distress, Oriented x3 HEENT: Atraumatic, Normocephalic Respiratory: Normal air movement, Diminished. On room air. Cardiovascular: Regular rate/rhythm. BLE edema. Gastrointestinal: Normal bowel sounds, Tenderness (mid-lower abdomen) Integumentary: No rashes Neurological: Normal speech, Normal tone Laboratory data -Reviewed Microbiology data -Reviewed Imagings Data: -Reviewed Medications List: Reviewed Assessment and Plan Problem list C. difficile colitis Acute on chronic systolic/diastolic CHF Severe pulmonary hypertension Moderate mitral and tricuspid regurgitation NSTEMI Hypertension Rheumatoid arthritis Gout C. difficile colitis -C. difficile antigen positive, toxin negative -Patient reported having ~10 liquid bowel movements on 05/30 -Started on vancomycin PO 05/31 - No previous history of C.diff in the past - On probiotic WBC WNL Afebrile. Acute on chronic systolic/diastolic CHF NSTEMI Pulmonary hypertension -Cardiology following Recommendations - C.diff: Continue with Vancomycin PO x 10 days (05/31-05/09). On day 4 of . - Continue with supportive care - Follow up with cardiology as outpatient Plan of care discussed with patient at bedside. Case discussed with Giovana Avilez
[2023-06-03 15:24] LABS: Absolute Lymphocytes (CBC) 0.9 K/uL (0.7-4.9); Hematocrit 37.7 % (39.6-49.0); Lymphocytes % 13.8 % (15.3-44.8); MCV 92.1 fL (80-100); MPV 11.1 fL (7.6-11.3); Platelets 206 thou/uL (152-406)
[2023-06-03 15:39] LABS: Bilirubin Total 0.5 mg/dL (0.2-1.0); Magnesium 1.6 mg/dL (1.6-2.4); Phosphorus 3.6 mg/dL (2.5-4.9); Protein, Total 7.2 g/dL (6.4-8.2)
[2023-06-03] MEDS ORDERED: BUMETANIDE 1 MG/4 ML VIAL IV ONE (17:16)
[2023-06-03] MEDS ORDERED: LOPERAMIDE HCL 2 MG CAPSULE PO STA (17:17)
[2023-06-03] MEDS ORDERED: Magnesium Sulfate 2gm IVPB 2 G/50 ML BAG IV ONE ×2 (17:18→20:00)
[2023-06-03] MEDS ORDERED: FENTANYL CITR 100 MCG/2 ML IV ONE (17:19)
[2023-06-03] MEDS: ATORVASTATIN 40 MG TAB PO SCH (21:12)
[2023-06-04] MEDS: VANCOMYCIN ORAL SOLN 250 MG/5 ML OSYR PO SCH ×3 (00:23→12:00)
[2023-06-04] MEDS ORDERED: BUMETANIDE 1 MG TABLET PO SCH (07:30)
[2023-06-04] MEDS: LACTOBACILLUS/ACIDOPHILUS TAB PO SCH (08:00)
--- NOTE | 2023-06-04 08:07 | P.PN ---
Date of Service: 06/04/23 Chief Complaint: NSTEMI, CHF Subjective: Patient sitting up on side of bed eating breakfast. In no apparent distress. Denies any new or worsening complaints at this time. Reports improvement in abdominal pain/diarrhea compared to yesterday. He states he wants to go home. Pending Life Vest approval prior to discharge. Physical Examination Temp Pulse Resp BP Pulse Ox 96.4 F L 84 17 120/98 H 91 06/04/23 04:00 06/04/23 04:00 06/04/23 04:00 06/04/23 04:00 06/04/23 04:00 General: Alert, In no apparent distress, Oriented x3 HEENT: Atraumatic, Normocephalic Respiratory: Normal air movement, Diminished. On room air. Cardiovascular: Regular rate/rhythm. BLE edema. Gastrointestinal: Normal bowel sounds. Mild tenderness mid-lower abdomen. Msk: Moves all extremities. Ambulates independently Integumentary: No rashes Neurological: Normal speech, Normal tone Laboratory data -Reviewed Microbiology data -Reviewed Imagings Data: -Reviewed Medications List: Reviewed Assessment and Plan Problem list C. difficile colitis Acute on chronic systolic/diastolic CHF Severe pulmonary hypertension Moderate mitral and tricuspid regurgitation NSTEMI Hypertension Rheumatoid arthritis Gout C. difficile colitis -C. difficile antigen positive, toxin negative -Patient reported having ~10 liquid bowel movements on 05/30 -Started on vancomycin PO 05/31 - No previous history of C.diff in the past - On probiotic WBC WNL Afebrile. Acute on chronic systolic/diastolic CHF NSTEMI Pulmonary hypertension -Cardiology following Recommendations - C.diff: Continue with Vancomycin PO x 10 days (05/31-05/09). On day 5 of . - Continue with supportive care - Follow up with cardiology as outpatient Plan of care discussed with patient at bedside. Pending Life Vest prior to discharge. CM/SS following. Case discussed with Giovana Avilez
--- NOTE | 2023-06-04 09:52 | EKG ---
Test Date: 2023-05-30 Test Time: 21:30:30 Senior Recruiter: LANDON MEASUREMENT RESULTS: Intervals: Rate: 104 ME: 166 QRSD: 134 QT: 390 QTc: 512 [place]: P: 78 ME: 166 QRS: -75 T: 90 INTERPRETIVE STATEMENTS: Sinus rhythm with frequent PVCs Left axis deviation Nonspecific intraventricular block Cannot rule out Septal infarct, age undetermined Abnormal ECG Compared to ECG 05/30/2023 21:29:37 Myocardial infarct finding now present Electronically Signed On 06-04-23 09:47:24 CDT by Abisai Padron
--- NOTE | 2023-06-04 09:52 | EKG ---
Test Date: 2023-05-30 Test Time: 21:29:37 Museum Curator: LANDON MEASUREMENT RESULTS: Intervals: Rate: 105 [place]: 162 QRSD: 136 QT: 394 QTc: 520 [place]: P: 68 [place]: 162 QRS: -73 T: 90 INTERPRETIVE STATEMENTS: Sinus rhythm with frequent PVCs Left axis deviation Nonspecific intraventricular block Abnormal ECG Compared to ECG 05/29/2023 12:48:52 T-wave abnormality no longer present Possible ischemia no longer present Electronically Signed On 06-04-23 09:47:55 CDT by Abisai Padron
[2023-06-04] MEDS: ASPIRIN EC 81 MG TAB PO SCH ×2 (10:24→10:25)
[2023-06-04] MEDS: METOPROLOL TAR 50 MG TAB PO SCH (10:25)
[2023-06-04 10:39] VITALS: O2SAT 94
[2023-06-04 11:05] LABS: Absolute Lymphocytes (CBC) 1.1 K/uL (0.7-4.9); Hematocrit 38.8 % (39.6-49.0); Lymphocytes % 13.9 % (15.3-44.8); MCV 92.1 fL (80-100); Platelets 213 thou/uL (152-406); RBC Red Blood Cell Count 4.21 M/uL (4.33-5.43)
[2023-06-04 11:23] LABS: Magnesium 2.2 mg/dL (1.6-2.4); Potassium 3.9 mEq/L (3.5-5.1)
[2023-06-04 11:25] LABS: Troponin High Sensitivity 1244.4 pg/mL (<58.9)
[2023-06-04 12:23] VITALS: TEMP 98.3
[2023-06-04 14:19] VITALS: BMI 5007.6
[2023-06-04 15:39] VITALS: BP 130/87
== END 2023-06-04 18:56 | disposition home or self-care (01) | DRG 280 ==
LOC: ER 09:36 → ERHOLD 12:29 → 4TH 16:11
PROVIDERS: ADMIT Internal Medicine; ATTEND Hospitalist
DX: I13.0 Hypertensive heart and chronic kidney disease with heart failure and stage 1 through stage 4 chronic kidney disease, or unspecified chronic kidney disease (principal); I50.43 Acute on chronic combined systolic (congestive) and diastolic (congestive) heart failure; I21.A1 Myocardial infarction type 2; R64 Cachexia; A04.72 Enterocolitis due to Clostridium difficile, not specified as recurrent; N17.9 Acute kidney failure, unspecified; N18.31 Chronic kidney disease, stage 3a; M10.9 Gout, unspecified; E78.5 Hyperlipidemia, unspecified; I27.20 Pulmonary hypertension, unspecified; F32.A Depression, unspecified; E87.6 Hypokalemia; E83.42 Hypomagnesemia; I08.1 Rheumatic disorders of both mitral and tricuspid valves; M06.9 Rheumatoid arthritis, unspecified; M19.90 Unspecified osteoarthritis, unspecified site; Z88.0 Allergy status to penicillin; Z88.8 Allergy status to other drugs, medicaments and biological substances; Z68.34 Body mass index [BMI] 34.0-34.9, adult; Z89.422 Acquired absence of other left toe(s)
CPT/HCPCS: 36415; 71045; 80048; 80053; 80076; 83735; 83880; 84100; 84484; 85025; 85610; 85730; 87324; 93005; 93306; 96374; 99285; J1644; J1940; J3010; J3475; J3480

== ENCOUNTER 2023-06-20 12:21 | Emergency (ER) | payer OTHER ==
--- OUTSIDE RECORDS SUMMARY | 2023-06-20 12:24 | XMS REPORT | Continuity of Care Document ---
:[address] [facility] t Address [address] [place] [address] Care Team Providers Name Role Phone CORDELL Hess [facility] Primary Care P hysician Unavailable LEVI EDWARDS Attending Clinician Unavailable EVA DA SILVA Attending Clinician Unavailable LAB90 Attending Clinician Unavailable CASSIA YOO Attending Clinician Unavailable 39, HOLTER Attending Clinician Unavailable ELOY CAMPOS Attending Clinician Unavailable TRED47 Attending Clinician Unavailable LENNIE ZAFAR Attending Clinician Unavailable MD WINDY Attending Clinician Unavailable Hitesh Barroso Attending Clinician Unavailable LAY GARDNER Attending Clinician Unavailable Lay Gardner DO Attending Clinician EMILE SHERIDAN Attending Clinician Unavailable SUZETTE FLANAGAN Attending Clinician Unavailable LESLI MENDOZA Attending Clinician Unavailable Hitesh Barroso Admitting Clinician Unavailable KNOW, DOES_NOT Admitting Clinician Unavailable Payers Payer Name Policy Type Policy Number Effective Date Expiration Date S rodri [facility] [id number] 2021 00:00:00 [employer] MP CVS 9 [id number] 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 Care Everywher e Records History of History of Disease Active K elsey gout gout 03-06 Seybold 00:00: - 00 Externa l Acute on Acute on Disease Active Unive rs chronic chronic 09-06 ity of combined combined 00:00: [place] systolic systolic 00 Medica l and and Branch diastolic diastolic heart heart failure failure Troponin I Troponin I Disease Active U nivers above above 09-05 [place] of [place] range 00 [place] Pulmonary Pulmonary Disease Active Uni vers hypertensi hypertensi 09-05 it y of on on 00:00: 00 Medical Branch Acute on Acute on Disease Active Unive rs chronic chronic 09-04 ity of systolic systolic 00:00: [place] and and 00 Medical diastolic diastolic Bran ch heart heart failure, failure, NYHA class NYHA class 3 3 Cigarette Cigarette Disease Active Uni vers nicotine nicotine 09-04 ity of dependence [place] without without 00 Medical complicati complicati Br anch on on Essential Essential Disease Active Uni vers hypertensi hypertensi 09-04 it y of on on 00:00: 00 Medical Branch Obesity Obesity Disease Active Univers (BMI (BMI 2 ity of 30-39.9) 30-39.9) 00:00: [place] 00 Medical Branch Allergies, Adverse Reactions, Alerts Allergy Allergy Status Severity Reaction(s) Onset Inactive Treating Comm ents Source Name Type Date Date Clinician PENICILL DRUG Active Unknown-Cmnt Un nneka IN INGREDI 09-04 ity of 00:00: [place] 00 Medical Branch Penicill Propensi Active Unknown - As a Uni vers in ty to See comments 09-04 child- ity of adverse 00:00: unsure of [place] reaction 00 reaction Medica l s Branch Penicill Propensi Active Other Yareli in G ty to 09-04 reaction( Seybold adverse 00:00: s): - reaction 00 Unknown - Exter na s See l commentsA s a child- unsure of reaction NO KNOWN Drug Active Univers ALLERGIE Class ity of S [facility] [place] [facility] Social History Social Habit Start Date Stop Date Quantity Comments Source Gender identity Yareli wrightdiana - External Sexual orientation Yareli Lerma - External History of tobacco Cigarette Smoker Yareli Lerma - use External Exposure to Not sure University of SARS-CoV-2 (event) [facility] [place] [facility] Alcohol intake 2023-03-13 2023-03-13 Ex-drinker Yareli hernandez - 00:00:00 00:00:00 (finding) External Tobacco use and 2023-03-06 2023-03-06 Smokeless Yareli wrightdiana - exposure 00:00:00 00:00:00 tobacco non-user External History of Social 2023-03-06 2023-03-06 Yareli Lerma - function 00:00:00 00:00:00 External Cigarettes smoked 2020-09-05 2020-09-05 Univers ity of current (pack per 00:00:00 00:00:00 [facility] ) - Reported Branch Cigarette 2020-09-05 2020-09-05 University of pack-years 00:00:00 00:00:00 [facility] Branch History SDOH 2020-09-04 2020-09-04 99 University o f Alcohol Frequency 00:00:00 00:00:[address] [facility] SDOH 2020-09-04 2020-09-04 99 University o f Alcohol Std Drinks 00:00:00 00:00:00 [facility] Branch History SDOH 2020-09-04 2020-09-04 99 University o f Alcohol Binge 00:00:00 00:00:00 [place] Medic al Branch Alcohol Comment 2020-09-04 2020-09-04 very rare Universit y of 00:00:00 00:00:00 [facility] [place] [facility] Tobacco Comment 2020-09-04 2020-09-04 Smokes weed Universi ty of 00:00:00 00:00:00 takes 2 weeks to [place] Me dical smoke a joint Branch Quit smoking thurs Sex [birth year] At [birth year] Yareli Se ybold - 00:00:00 00:00:00 External Smoking Status Start Date Stop Date Source Ex-smoker 2023-03-06 00:00:00 2023-03-06 00:00:00 Yareli reyes - External Medications Ordered Filled Start Stop Current Ordering Indication Dosage Frequency Signature Comments Components Source Medication Medication Date Date Medication? Clinician (SIG) Name Name Celecoxib 2022- No Take by Kia ey 400 MG oral 8-04 08-04 mouth Seybol d Capsule 08:58: 00:00 - 21 :00 Externa l Ergocalcife Yes Take by Frantz de la torrey rol 8-04 mouth Seybold (Vitamin 08:28: - D2) 10 MCG 24 Externa (400 UNIT) l oral Tablet Metoprolol Yes [id number] 50mg Take 1 K elsey Tartrate 8-04 tablet (50 Seybo ld (LOPRESSOR) 08:28: mg total) - 50 MG oral 24 by mouth 2 Ext hilario Tablet times l daily Furosemide 0 Yes [id number] 40mg Take 1 K elsey 40 MG oral 8-04 tablet (40 Sey bold Tablet 08:28: mg total) - 24 by mouth 2 Externa times l daily Folic Acid Yes 1mg Take 1 Kelse y 1 MG oral 8-04 tablet (1 Seybo ld tablet 08:28: mg total) - 24 by mouth Externa daily l Methotrexat 0 Yes [id number] 2.5mg Take 1 Yareli e 2.5 MG 8-04 tablet Seybold oral Tablet 08:28: (2.5 mg - 24 total) by Externa mouth l three times a week Potassium 2022-0 Yes [id number] 20meq Take 20 Yareli Chloride 20 8-04 mEq by Seybol d MEQ oral 08:28: mouth 2 - Pack 24 times Externa daily l Colchicine 2022-0 Yes [id number] .6mg Take 1 Yareli 0.6 MG oral 8-04 [id number] tablet Seybo ld Tablet 08:28: (0.6 mg - 24 total) by Externa mouth l daily Magnesium 2022-0 Yes Take by Satya y 400 MG oral 8-04 mouth Seybold Tablet 08:28: - 24 Externa l Allopurinol 2022-0 Yes [id number] 300mg Take 1 Yareli 300 MG oral 8-04 [id number] tablet Seybo ld Tablet 08:28: (300 mg - 24 total) by Externa mouth l daily Coenzyme 2022-0 Yes [id number] Take by Amol lugojosesito Q10 (Co Q 8-04 mouth Seybold 10) 10 MG 08:28: - oral 24 Externa Capsule l Ergocalcife 2022-0 Yes Take by Frantz sey rol 8-04 mouth Seybold (Vitamin 08:28: - D2) 10 MCG 24 Externa (400 UNIT) l oral Tablet Metoprolol 2022-0 Yes [id number] 50mg Take 1 K elsey Tartrate 8-04 tablet (50 Seybo ld (LOPRESSOR) 08:28: mg total) - 50 MG oral 24 by mouth 2 Ext hilario Tablet times l daily Furosemide 2022-0 Yes [id number] 40mg Take 1 K elsey 40 MG oral 8-04 tablet (40 Sey bold Tablet 08:28: mg total) - 24 by mouth 2 Externa times l daily Folic Acid 2022-0 Yes 1mg Take 1 Frantzse y 1 MG oral 8-04 tablet (1 Seybo ld tablet 08:28: mg total) - 24 by mouth Externa daily l Methotrexat 2022-0 Yes [id number] 2.5mg Take 1 Yareli e 2.5 MG 8-04 tablet Seybold oral Tablet 08:28: (2.5 mg - 24 total) by Externa mouth l three times a week Potassium 3-0 Yes [id number] 20meq Take 20 Yareli Chloride 20 8-04 mEq by Seybol d MEQ oral 08:28: mouth 2 - Pack 24 times Externa daily l Colchicine 3-0 Yes [id number] .6mg Take 1 Yareli 0.6 MG oral 8-04 [id number] tablet Seybo ld Tablet 08:28: (0.6 mg - 24 total) by Externa mouth l daily Magnesium 2022-0 Yes Take by Satya y 400 MG oral 8-04 mouth Seybold Tablet 08:28: - 24 Externa l Allopurinol 2022-0 Yes [id number] 300mg Take 1 Yareli 300 MG oral 8-04 [id number] tablet Seybo ld Tablet 08:28: (300 mg - 24 total) by Externa mouth l daily Coenzyme 2023-0 Yes [id number] Take by Ke lsey Q10 (Co Q 8-04 mouth Seybold 10) 10 MG 08:28: - oral 24 Externa Capsule l Diclofenac 2022-0 Yes [id number] 75mg Take 1 Yareli Sodium 75 8-04 tablet (75 Seyb old MG oral 00:00: mg total) - Tablet 00 by mouth 2 Externa Delayed times l Response daily methylPREDN 2022-0 Yes [id number] 1{rhea} Take 1 rhea Yareli ISolone 4 8-04 [id number] by mouth Seybo ld MG oral 00:00: See Admin - Tablet 00 Instructio Externa Therapy ns Use as l Pack directed Diclofenac 2022-0 Yes [id number] 75mg Take 1 Yareli Sodium 75 8-04 tablet (75 Seyb old MG oral 00:00: mg total) - Tablet 00 by mouth 2 Externa Delayed times l Response daily methylPREDN 2022-0 Yes [id number] 1{rhea} Take 1 rhea Yareli ISolone 4 8-04 [id number] by mouth Seybo ld MG oral 00:00: See Admin - Tablet 00 Instructio Externa Therapy ns Use as l Pack directed Amitriptyli 2022-0 Yes 50mg Take 1-2 Ke lsey ne HCl 50 8-04 tablets Seybold MG oral 00:00: (50-100 mg - Tablet 00 total) by Externa mouth l nightly Indomethaci 2022-0 Yes TAKE 1 Kia ey n 50 MG 8-04 CAPSULE BY Seybol d oral 00:00: MOUTH - Capsule 00 THREE Externa TIMES A l DAY FOR 10 DAYS methylPREDN 2020-0 Yes [id number] 84mg Take 21 Univers ISolone 8-17 9109 tablets by ity of (MEDROL, 00:00: mouth [place] RHEA,) 4 mg 00 SEE-INSTRU Med ical tablets CTIONS. Branch follow package directions ubidecareno Yes Take by Uni vers ne (COQ-10 3-30 mouth. ity of ORAL) 15:04: [place] [address] Medical Branch triamcinolo Yes Apply to Un nneka ne 0.5 % 3-30 area(s) 2 ity of ointment 15:04: (two) [place] [address] times Medical daily. Branch KCL 20 mEq Yes [id number] 40meq Take 2 Univers tablet 2- 9103 tablets by ity of 00:00: mouth [place] 00 daily. Medical Branch spironolact 0 Yes [id number] 25mg Take 1 Univers one 25 mg 2- 9103 tablet by ity o f tablet 00:00: mouth [place] 00 daily. Medical Branch metoprolol 0 Yes [id number] 50mg Take 1 Univers succinate 2 9103 tablet by ity o f XL 50 mg 24 00:00: mouth 2 Isaak as hr tablet 00 (two) Medical times Branch daily. Magnesium 0 Yes [id number] 400mg Take 400 Univers Oxide 420 2- 9103 mg by ity of mg Tab 00:00: mouth [place] 00 daily. Medical Branch aspirin 81 0 Yes [id number] 81mg Take 1 Univers mg chewable 2 9103 tablet by ity of tablet 00:00: mouth [place] 00 daily. Medical Branch losartan 50 0 Yes [id number] 50mg Take 1 Univers mg tablet 2 9103 tablet by ity o f 00:00: mouth [place] 00 daily. Medical Branch ibuprofen 0 Yes [id number] 200mg Take 1 Univers 200 mg 2 9103 tablet by ity of tablet 00:00: mouth [place] 00 every 6 Medical (six) Branch hours as needed for Pain (scale 1-3). montelukast 0 Yes [id number] 10mg Take 1 Univers 10 mg 2- 9103 tablet by ity of tablet 00:00: mouth [place] 00 daily. Medical Branch furosemide 0 Yes [id number] 80mg Take 1 Univers 80 mg 2 9103 tablet by ity of tablet 00:00: mouth [place] 00 every Medical morning Branch and evening. Cholecalcif 0 Yes [id number] 5000U Take 1 Univers glenis, 2 9103 tablet by ity of Vitamin D3, 00:00: mouth [place] (VITAMIN 00 daily. Medical D3) 125 mcg Branch (5,000 unit) tablet ascorbic 0 Yes [id number] 500mg Take 1 Univers acid, 2 9103 tablet by ity of vitamin C, 00:00: mouth [place] (VITAMIN C) 00 daily. Medica l 500 mg Branch tablet metOLazone 0 Yes [id number] 2.5mg Take 1 Univers 2.5 mg 09-10 tablet by ity of tablet 00:00: mouth [place] 00 weekly. Medical Branch Vital Signs Vital Name Observation Time Observation Value Comments Source Systolic blood 2023-03-13 18:16:00 132 mm[Hg] Yareli Seybold - pressure External Diastolic blood 2023-03-13 18:16:00 87 mm[Hg] Frantzse y Seybold - pressure External Heart rate 2023-03-13 18:16:00 97 /min Yareli S eybold - External Body temperature 2023-03-13 18:16:00 36.61 Michelle Kia ey Seybold - External Respiratory rate 2023-03-13 18:16:00 20 /min Kia ey Sey[place] - External Body height 2023-03-13 18:16:00 182.9 cm Yareli Boss eybold - External Body weight 2023-03-13 18:16:00 124.286 kg Yareli Boss eybold - External BMI 2023-03-13 18:16:00 37.16 kg/m2 Yareli Boss eybold - External Oxygen saturation in 2023-03-13 18:16:00 93 /min Yareli De La Torrekylediana - Arterial blood by External Pulse oximetry Systolic blood 2023-03-06 13:17:00 141 mm[Hg] Yareli De La Torreybold - pressure External Diastolic blood 2023-03-06 13:17:00 87 mm[Hg] Frantzse y Seybold - pressure External Heart rate 2023-03-06 13:17:00 114 /min Yareli Boss eybold - External Body temperature 2023-03-06 13:17:00 36.61 Michelle Kia ey Seybold - External Respiratory rate 2023-03-06 13:17:00 21 /min Kia bellamy Seybold - External Body height 2023-03-06 13:17:00 182.9 cm Yareli Boss eybold - External Body weight 2023-03-06 13:17:00 127.914 kg Yareli Boss eybold - External BMI 2023-03-06 13:17:00 38.25 kg/m2 Yareli S eybold - External Oxygen saturation in 2023-03-06 13:17:00 100 /min Yareli Seybold - Arterial blood by External Pulse oximetry Systolic blood 2021-08-26 18:23:00 173 mm[Hg] Univer sity of pressure [facility] [place] [facility] Diastolic blood 2021-08-26 18:23:00 97 mm[Hg] Unive rsity of pressure [facility] [place] [facility] Heart rate 2021-08-26 18:23:00 90 /min [facility] Body temperature 2021-08-26 18:23:00 36.61 Michelle [facility] 2021-08-26 18:23:00 18 /min [facility] Body height 2021-08-26 18:23:00 [facility] 2021-08-26 18:23:00 113.399 kg [facility] BMI 2021-08-26 18:23:00 33.91 kg/m2 [facility] Oxygen saturation in 2021-08-26 18:23:00 100 /min [facility] Arterial blood by [facility] Pulse oximetry Branch Procedures Procedure Date / Time Performed Performing Clinician [facility] NOTICE OF PRIVACY 2021-08-26 18:13:07 Doctor Unassigned, No Univ [facility] PRACTICES Name Medical Branch CONSENT/REFUSAL FOR 2021-08-26 18:12:44 Doctor Unassigned, No Un [facility] DIAGNOSIS AND Name Medical Branch TREATMENT Encounters Start End Encounter Admission Attending Care Care Encounter Source Date/Time Date/Time Type Type Clinicians Facility Department ID 2022-03-28 Outpatient [facility] [id number] [place] 07:59:42 [id number] [facility] 2022-03-27 Outpatient [facility] [id number] [place] 08:25:29 [id number] [facility] 2023-09-17 2023-09-17 Outpatient YARELI EDWARDS [id number] Yareli 10:25:00 10:25:00 LEVI Seybol d 2023-07-29 2023-07-29 Outpatient YARELI VAZQUEZ [id number] Yareli 11:00:00 11:00:00 Seybol d 2023-07-20 2023-07-20 Outpatient YARELI DA SILVA [id number] Yareli 15:00:00 15:00:00 EVA Seybol d 2023-06-19 2023-06-19 Outpatient LAB90 YARELI VAZQUEZ [id number] Yareli 15:45:00 15:45:00 Seybol d 2023-06-19 2023-06-19 Outpatient FREDO YARELI VAZQUEZ [id number] Yareli 15:00:00 15:00:00 CASSIA Seybol d 2023-06-12 2023-06-12 Outpatient JERRY YARELI VAZQUEZ [id number] Yareli 09:25:00 09:25:00 LEVI Seybol d 2023-06-10 2023-06-10 Outpatient FREDO YARELI VAZQUEZ [id number] Yareli 00:00:00 00:00:00 CASSIA Seybol d 2023-06-04 2023-06-04 Outpatient JERRY YARELI VAZQUEZ [id number] Yareli 00:00:00 00:00:00 LEVI Seybol d 2023-06-01 2023-06-01 Outpatient FREDO YARELI VAZQUEZ [id number] Yareli 00:00:00 00:00:00 CASSIA Seybol d 2023-05-27 2023-05-27 Outpatient FREDO YARELI VAZQUEZ [id number] Yareli 00:00:00 00:00:00 CASSIA Seybol d 2023-05-22 2023-05-22 Outpatient 39, JESUS YARELI VAZQUEZ [id number] Yareli 12:45:00 12:45:00 Seybol d 2023-05-22 2023-05-22 Outpatient YARELI CAMPOS [id number] Yareli 10:00:00 10:00:00 ELOY Seybol d 2023-05-19 2023-05-19 Outpatient JERRYYARELI [id number] Yareli 00:00:00 00:00:00 LEVI Seybol d 2023-05-15 2023-05-15 Outpatient YARELI EDWARDS [id number] Yareli 00:00:00 00:00:00 LEVI Seybol d 2023-05-13 2023-05-13 Outpatient TRED47 YARELI VAZQUEZ [id number] Yareli 14:45:00 14:45:00 Seybol d 2023-05-13 2023-05-13 Outpatient JERRY YARELI VAZQUEZ [id number] Yareli 13:55:00 13:55:00 LEVI Seybol d 2023-05-13 2023-05-13 Outpatient JERRY YARELI VAZQUEZ [id number] Yareli 00:00:00 00:00:00 LEVI Seybol d 2023-05-13 2023-05-13 Outpatient ANDRADE YARELI VAZQUEZ [id number] Yareli 00:00:00 00:00:00 LENNIE Sey bold 2023-04-24 2023-04-24 Outpatient COLLINSArielaYARELI [id number] Yareli 00:00:00 00:00:00 CASSIA Seybol d 2023-04-20 2023-04-20 Outpatient YARELI VAZQUEZ [id number] Yareli 09:30:00 09:30:00 Seybol d 2023-04-20 2023-04-20 Outpatient YARELI VAZQUEZ [id number] Yareli 08:15:00 08:15:00 Seybol d 2023-04-15 2023-04-15 Outpatient SFA SFA [id number] Cordell 13:36:52 13:36:52 0913 F Ty 2023-04-13 2023-04-13 Outpatient SFA SFA [id number] Cordell 09:00:32 09:00:32 0911 F Ty 2023-03-26 2023-03-26 Outpatient YARELI VAZQUEZ [id number] Yareli 10:50:00 10:50:00 Seybol d 2023-03-26 2023-03-26 Outpatient YARELI YOO [id number] Yareli 00:00:00 00:00:00 CASSIA Seybol d 2023 2023 Outpatient YARELI YOO [id number] Yareli 00:00:00 00:00:00 CASSIA Seybol d 2023-03-16 2023-03-16 Outpatient YARELI YOO [id number] Yareli 00:00:00 00:00:00 CASSIA Seybol d 2023-03-13 2023-03-13 Outpatient YARELI YOOSEY [id number] Yareli 13:30:00 13:30:00 CASSIA Seybol d 2023-03-12 2023-03-12 Outpatient LAB90 YARELI VAZQUEZ [id number] Yareli 09:50:00 09:50:00 Seybol d 2023-03-12 2023-03-12 Outpatient MYKELSEYONL YARELI VAZQUEZ [id number] Yareli 00:00:00 00:00:00 MD KELVIN Seybol d 2023-03-11 2023-03-11 Outpatient LAB90 YARELI VAZQUEZ [id number] Yareli 13:45:00 13:45:00 Seybol d 2023-03-11 2023-03-11 Outpatient FREDO YARELI VAZQUEZ [id number] Yareli 00:00:00 00:00:00 CASSIA Seybol d 2023-03-10 2023-03-10 Outpatient YARELI YOO [id number] Yareli 00:00:00 00:00:00 CASSIA Seybol d 2023-03-06 2023-03-06 Outpatient LAB90 YARELI VAZQUEZ [id number] Yareli 09:45:00 09:45:00 Seybol d 2023-03-06 2023-03-06 Outpatient COLLINSAriela YARELI VAZQUEZ [id number] Yareli 09:00:00 09:00:00 CASSIA Seybol d 2023-03-06 2023-03-06 Outpatient YARELI VAZQUEZ [id number] Yareli 00:00:00 00:00:00 Seybol d 2023-03-06 2023-03-06 Outpatient YARELI VAZQUEZ [id number] Yareli 00:00:00 00:00:00 Seybol d 2023-03-02 2023-03-02 Outpatient YARELI YOO [id number] Yareli 11:00:00 11:00:00 CASSIA Seybol d 2022-11-25 2022-11-25 Outpatient SFA SFA [id number] Cordell 15:35:19 15:35:19 0425 [facility] 2022-11-13 2022-11-13 Outpatient SFA SFA [id number] Cordell 14:52:58 14:52:58 0413 F Ty 2022-10-30 2022-10-30 Outpatient SFA SFA [id number] Cordell 13:55:48 13:55:48 0330 [facility] 2022-10-20 2022-10-20 Outpatient SFA SFA [id number] Cordell 15:42:43 15:42:43 0320 [facility] [place] 2022-09-17 2022-09-17 Outpatient SFA SFA [id number] Cordell 13:04:22 13:04:22 0215 [facility] 2022-09-03 2022-09-03 Outpatient SFA SFA [id number] Cordell 10:34:21 10:34:21 [id number] [facility] 2022-08-20 2022-08-20 Outpatient SFA SFA [id number] Cordell 08:03:03 08:03:03 0118 F [place] 2022-08-06 2022-08-06 Outpatient SFA SFA [id number] Cordell 11:44:17 11:44:17 [id number] [facility] 2022-06-24 2022-06-24 Outpatient SFA SFA [id number] Cordell 11:44:53 11:44:53 [id number] [facility] 2022-06-20 2022-06-20 Outpatient SFA SFA [id number] Cordell 10:22:08 10:22:08 [id number] [facility] 2022-06-16 2022-06-16 Outpatient SFA SFA [id number] Cordell 15:25:36 15:25:36 1114 [facility] 2022-02-07 2022-02-07 Outpatient SHARAN Hitesh Barroso [facility] [id number] [facility] 13:10:00 13:10:[id number] [facility] 2022-02-07 2022-02-07 Outpatient SHARAN Hitesh Barroso [facility] SUGL [id number] [facility] 13:10:00 13:10:[address] [facility] 2021-08-26 2021-08-26 Emergency X TASHA GARDNER ERT [id number] Univers 12:44:00 13:23:00 LAY fajardo [facility] 2021-08-26 2021-08-26 Emergency TSAHA Gardner [id number] Univers 12:44:00 13:23:00 Lay RECIO [id number] [facility] [id number] [facility] [id number] [place] [id number] Branch 2021-03-19 2021-03-19 [facility] [id number] Univers 15:15:00 15:15:00 EMILE [facility] 2021-03-07 2021-03-07 Outpatient R PANCHITO [facility] [id number] Univers 08:30:00 08:30:00 SUZETTE [facility] 2021-01-09 2021-01-09 [facility] [id number] Univers [facility]:00[facility] 2021-01-04 [facility] [id number] Univers 16:00:00 16:00:00 SENDIL [facility] 2020-12-13 2020-12-13 [facility] [id number] Univers 14:00:00 14:00:00 SENDIL [facility] 2020-10-30 2020-10-30 [facility] [id number] Univers 15:30:00 15:30:00 SENDIL [facility] 2020-09-04 2020-09-04 [facility] [id number] Univers 09:30:00 09:30[facility] Results Test Description Test Time Test Comments Results Result Comments Source URIC ACID 2022-11-27 08:46:35 Test Item Value Reference Range Interpretation Comme nts URIC ACID (test code = 6.6 MG/DL 3.7-8.0 [facility] has important pathology staff 2233) changes effecti ve 10/01/2022. New pathology staff will provide uninterrupted, excellent patient care and clinical consul tation. See URL: [email or web address]. UNLESS OTHERWISE INDIC ATED, ALL TESTING PERFORMED AT [facility], [facility]. [address] [place] [id number] ISAIAS SPENCER DIRECTOR: Alice CELIS AKHIL NUMBER [id number] CAP ACCREDITATION N O. [id number] URIC [id number] 06:54:01 Test Item Value Reference Range Interpretation Comments URIC ACID (test 12.1 MG/DL 3.7-8.0 H [facility] has important code = 2233) pathology staff changes effective 10/01. New pathology s taff will provide uninter rupted, excellent patie nt care and clinical consul tation. See URL: [email or web address]. UNLESS OT HERWISE INDICATED, ALL TESTING PERFORMED AT [facility] [employer] [address] [place] [address] ISAIAS SPENCER DIRECTOR: Alice LUNSFORD AKHIL NUMBER [id number] CAP ACCREDITATION N O. [id number] COMPREHENSIVE METABOLIC [id number] 03:07:15 Test Item Value Reference Range Interpretation Comments GLUCOSE (test code = 98 MG/DL 70-99 2216) BUN (test code = 59 MG/DL 8-23 H 2207) CREATININE (test 1.80 MG/DL 0.80-1.40 H code = 2214) eGFR (2020 CKD-EPI) 43 >60 L (test code = 49723) ML/MIN/1.73 CALC BUN/CREAT (test 33 RATIO 6-28 H code = 2235) SODIUM (test code = 140 MEQ/L 211-510 3266) POTASSIUM (test code 5.6 MEQ/L 3.5-5.4 H = 2228) CHLORIDE (test code 106 MEQ/L 95-107 = 2215) CARBON DIOXIDE (test 23 MEQ/L 19-31 code = 2206) CALCIUM (test code = 9.3 MG/DL 8.5-10.5 2208) PROTEIN, TOTAL (test 7.5 G/DL 6.1-8.3 code = 2229) ALBUMIN (test code = 4.2 G/DL 3.5-5.2 2200) CALC GLOBULIN (test 3.3 G/DL 1.9-3.7 code = 2240) CALC A/G RATIO (test 1.3 RATIO 1.0-2.6 code = 2234) BILIRUBIN, TOTAL 0.3 MG/DL See_Comment [Automated message] (test code = 2207) The syste m which generated this result transmitted ref erence range: <=1.2. T he reference range was not used to int erpret this result as normal/abnormal . ALKALINE PHOSPHATASE 111 U/L 40-123 (test code = 2204) AST (test code = 68 U/L 9-50 H 2217) ALT (test code = 61 U/L 5-50 H UNLESS OT HERWISE 2218) INDICATED, ALL TESTING PERFORM ED ATCLINICAL PATH OLOGY LABORATORIES, I [place]. [address] [place] [address] [facility] [place] [facility] [place] DIRECTOR: Alice BUTTIA NUMBER [id number] CAP ACCREDITATION N O. [id number] PSA, [id number] 04:19:15 Test Item Value Reference Range Interpretation Comments PSA, TOTAL 2.33 NG/ML See_Comment NOTE: Methodol ogy is Lorelei (test code = Michael Electroch emiluminescence 2606) Immunoassay tra ceable to WHO reference stand reinaldo 96/760. UNLESS OTHERWIS E INDICATED, ALL TESTING PERFORM ED ATCLINICAL PATHOLOGY [facility] [employer] [address] [place] [address] LABORATORY DIRE CTOR: Alice BUTTIA NUMBER [id number] [place]. [id number] [A utomated message] The sy stem which generated this result transmitted ref erence range: <=4.00. The ref erence range was not used to int erpret this result as musa l/abnormal. LIPID [id number] 03:41:39 Test Item Value Reference Range Interpretation Comments CHOLESTEROL (test 153 MG/DL <200 code = 2210) TRIGLYCERIDES (test 76 MG/DL <150 code = 2232) HDL CHOLESTEROL (test 51 MG/DL >39 code = 2220) CALC LDL CHOL (test 85 MG/DL <100 NOTE: C ALCULATED LDL code = 2237) IS BASED ON ERIK-CUEVAS METHOD WHICHINCLUDES ADJUSTABLE TRIGLYCERIDE:VL DL CHOLESTEROL RAT IO.THIS FACTOR VARIES B Y MEASURED TRIGLY CERIDE AND NON-HDLCHOL ESTEROL CONCENTRATIONS WITH INCREASED CALCU LATED LDL SEENIN HIGH ER TRIGLYCERIDE OR LOWER NON-HDL SPECIME NS. FOR MOREINFORMATION , SEE CLIENT ANNOUNCE MENT AT [email or web address] RISK RATIO LDL/HDL 1.67 RATIO <3.55 (test code = 2238) COMPREHENSIVE METABOLIC [id number] 03:41:39 Test Item Value Reference Range Interpretation Comments GLUCOSE (test code = 103 MG/DL 70-99 H 2216) BUN (test code = 42 MG/DL 8-23 H 2207) CREATININE (test 1.46 MG/DL 0.80-1.40 H code = 2214) eGFR (2020 CKD-EPI) 55 ML/MIN/1.73 >60 L The N KF-ASN (test code = 20345) Taskforc e recommends use of Cystatin C to confirm eGFR inadults at [facility] k for CKD. [facility] offers eGFR with Cystatin C-Creatinineusi ng the 2020 CKD-EP I eGFR_creat-cyst at equation (order code 3057) toincreas e the accuracy of estimated GFR. For more informatio n, contactyour acc ount executive or se e announcement [email or web address] CALC BUN/CREAT (test 29 RATIO 6-28 H code = 2235) SODIUM (test code = 142 MEQ/L 330-003 6283) POTASSIUM (test code 5.0 MEQ/L 3.5-5.4 = 2227) CHLORIDE (test code 106 MEQ/L 95-107 = 2214) CARBON DIOXIDE (test 24 MEQ/L 19-31 code = 2206) CALCIUM (test code = 8.9 MG/DL 8.5-10.5 2208) PROTEIN, TOTAL (test 6.8 G/DL 6.1-8.3 code = 2229) ALBUMIN (test code = 3.8 G/DL 3.5-5.2 2200) CALC GLOBULIN (test 3.0 G/DL 1.9-3.7 code = 2240) CALC A/G RATIO (test 1.3 RATIO 1.0-2.6 code = 2234) BILIRUBIN, TOTAL 0.2 MG/DL See_Comment [Automated message] (test code = 2207) The syste m which generated this result transmit corina reference range : <=1.2. The refe rence range was not u sed to interpret th is result as normal/abnormal . ALKALINE PHOSPHATASE 118 U/L 40-123 (test code = 2204) AST (test code = 38 U/L 2217) ALT (test code = 28 U/L 2218) - XR CHEST 2 [id number] 13:38:00 [facility] : 1960 Sex: M Patient Name: ZAIDA YADAV Unit No: [id number] EXAMS: CPT CODE: [id number] XR CHEST 2 V 88132 B2 EXAM: - XRCHEST 2 V HISTORY: COPD COMPARISON: None FINDINGS: Patchy perihilar airspace opacities. The lungs are hyperexpanded. No pleural effusion or pneumothorax. The cardiac silhouette is within normal limits. No acute osseous abnormalities. IMPRESSION: Mild perihilar atelectasis, pulmonary edema and/or pneumonia with underlying COPD. at 1338 Reported and signed by: Dharmesh Hughes MD CC: Hitesh Barroso MD Technologist: Jeannie Rodriguez,MRT Transcrpt Date/Tm/Trnsp: 02/07/2022 (1338) [id number] Orig Print D/T: S: 02/07/2022 (4068) [facility] NAME: ZAIDA YADAV [address] [facility] [address] PHYS: [place] [address] : 1960 AGE: 61 SEX: M LOC: KristinGera PHONE #: [phone] EXAM DATE: 02/07/2022 STATUS: REG CLI FAX #: [phone] RADIOLOGY NO: PAGE 1 Signed ReportGEISINGER J[facility] [id number] 06:33:46 Test Item Value Reference Range Interpretation Comments FOLIC ACID (test 16.0 UG/L SEE BELOW INTE RPRETIVE RANGES code = 0616) DEFICIENC Y . . . . . . . . . . . . . . . UG/L <4.0 POSSIBLE D EFICIENCY. . . . . . . . . . . UG/L 4.0-5.9 SUFFICI ENT . . . . . . . . . . . . . . . UG/L >=6.0 UNLESS OT HERWISE INDICATED, ALL TESTING PERFORMED ATCLI NICAL PATHOLOGY [employer]. [address] [place] [id number] [place] [address] DIRECTOR: JESÚS SARMIENTO M.D. CLIA NUMBER [id number] CAP ACCREDITATION N O. [id number] COMPREHENSIVE METABOLIC [id number] 04:35:42 Test Item Value Reference Range Interpretation Comments GLUCOSE (test code = 106 MG/DL 70-99 H 2216) BUN (test code = 20 MG/DL 6-20 2207) CREATININE (test 0.97 MG/DL 0.80-1.40 code = 2214) eGFR (2020 CKD-EPI) 90 ML/MIN/1.73 >60 (test code = 89965) CALC BUN/CREAT (test 21 RATIO 6-28 code = 2235) SODIUM (test code = 141 MEQ/L 123-743 8475) POTASSIUM (test code 5.2 MEQ/L 3.5-5.4 = 2228) CHLORIDE (test code 105 MEQ/L 95-107 = 2215) CARBON DIOXIDE (test 26 MEQ/L 19-31 code = 2206) CALCIUM (test code = 9.0 MG/DL 8.5-10.5 2208) PROTEIN, TOTAL (test 6.9 G/DL 6.1-8.3 code = 2229) ALBUMIN (test code = 3.9 G/DL 3.5-5.2 2200) CALC GLOBULIN (test 3.0 G/DL 1.9-3.7 code = 2240) CALC A/G RATIO (test 1.3 RATIO 1.0-2.6 code = 2234) BILIRUBIN, TOTAL 0.4 MG/DL See_Comment [Automated message] (test code = 7) The syste m which generated this result transmit corina reference range : <=1.2. The refe rence range was not u sed to interpret th is result as normal/abnormal . ALKALINE PHOSPHATASE 101 U/L 40-123 (test code = 2203) AST (test code = 50 U/L 50 2217) ALT (test code = 48 U/L 50 2218)
[2023-06-20 12:40] LABS: Absolute Lymphocytes (CBC) 0.6 K/uL (0.7-4.9); Hematocrit 39.5 % (39.6-49.0); Lymphocytes % 11.3 % (15.3-44.8); MCV 91.5 fL (80-100); Platelets 166 thou/uL (152-406); RBC Red Blood Cell Count 4.32 M/uL (4.33-5.43)
[2023-06-20 12:43] LABS: Protime INR 1.15
[2023-06-20] MEDS ORDERED: LORazepam 2 MG/ML VIAL ONE ×2 (12:48→16:49)
[2023-06-20] MEDS ORDERED: ONDANSETRON 4 MG/2 ML VIAL ONE (12:48)
[2023-06-20 13:01] LABS: ALT/SGPT 71 U/L (16-61); AST/SGOT 71 U/L (15-37); Albumin 3.3 g/dL (3.4-5.0); Alkaline Phosphatase 100 U/L (45-117); BUN Blood Urea Nitrogen 48 mg/dL (7-18); Bicarbonate 27 mEq/L (21-32); Bilirubin Direct 0.3 mg/dL (0-0.2); Bilirubin Indirect, Calculated 0.3 mg/dL (0.2-0.8); Bilirubin Total 0.6 mg/dL (0.2-1.0); Glomerular Filtration Rate 54 ml/min (=/>90); Glucose Level 139 mg/dL (74-106); Magnesium 1.8 mg/dL (1.6-2.4); Potassium 4.2 mEq/L (3.5-5.1); Protein, Total 7.6 g/dL (6.4-8.2); Sodium Level 138 mEq/L (136-145)
[2023-06-20 13:06] LABS: Troponin High Sensitivity 1313.5 pg/mL (<58.9)
--- NOTE | 2023-06-20 13:06 | RAD REPORT ---
EXAM DESCRIPTION: CT - Ct Stroke Brain Wo Cont - 06/20/2023 12:58 pm CLINICAL HISTORY: Confusion/alteration of awareness COMPARISON: none TECHNIQUE: Computed axial tomography of the head was obtained. All CT scans are performed using dose optimization technique as appropriate and may include automated exposure control or mA/KV adjustment according to patient size. FINDINGS: An intracranial bleed is not seen . The ventricles are normal in caliber. No extra-axial fluid collection is noted. No significant hyperdensity within the brain Fluid within the sinuses/ mastoids is not seen. IMPRESSION: No acute intracranial abnormality is seen. If patient's symptoms persist MRI of the bra in would be recommended Marian of the emergency room was notified at 101 PM June 20, 2023
--- NOTE | 2023-06-20 13:32 | RAD REPORT ---
EXAM DESCRIPTION: Ana Angio06/20/2023 12:59 pm CLINICAL HISTORY: Syncope COMPARISON: None TECHNIQUE: 100 cc Isovue [address] angiogram of the neck was obtained. 3D MIPS reconstruction performed. All CT scans are performed using dose optimization technique as appropriate and may include automated exposure control or mA/KV adjustment according to patient size. FINDINGS: Mild plaque is present within common carotid, internal carotid and external carotid arteri es bilaterally Left vertebral artery is hypoplastic. Mild plaque in the vertebral arteries No dissection is seen. No high-grade stenosis IMPRESSION: Mild plaque within the carotid and vertebral arteries [place] crieria Mild stenosis 0 to 49 % Moderate stenosis 50-69% Severe stenosis 70-99%
--- NOTE | 2023-06-20 13:38 | RAD REPORT ---
EXAM DESCRIPTION: CTHead angio06/20/2023 12:58 pm CLINICAL HISTORY: Syncope COMPARISON: None TECHNIQUE: 100 cc Isovue [address] angiogram of the head was obtained. 3D MIPS reconstruction performed. All CT scans are performed using dose optimization technique as appropriate and may include automated exposure control or mA/KV adjustment according to patient size. FINDINGS: The basilar, anterior cerebral, middle cerebral and posterior cerebral arteries do not dem onstrate a significant abnormality Moderate calcified plaque distal right internal carotid artery. An aneurysm is not seen No large vessel occlusion IMPRESSION: Moderate calcified plaque distal right internal carotid artery
--- NOTE | 2023-06-20 13:47 | RAD REPORT ---
EXAM DESCRIPTION: Vicky Single View06/20/2023 1:39 pm CLINICAL HISTORY: Chest pain COMPARISON: May 2023 FINDINGS: Mild bilateral pulmonary opacities. The heart is moderately enlarged. IMPRESSION: These findings probably indicate mild CHF
--- NOTE | 2023-06-20 14:30 | ER ---
Nurse's Notes [facility] Name: Buddy Franklin Jr Age: 63 yrs Sex: Male : 1960 Arrival Date: 06/20/2023 Time: 12:21 Bed 3 Private MD: Diagnosis: Subsequent non-ST elevation (NSTEMI) myocardial infarction;Altered mental status, unspecified;Chronic combined systolic (congestive) and diastolic (congestive) heart failure Presentation: 06/20 12:22 Chief complaint: EMS states: reports AMS since approx 0400 today, pt walked hb outside, removed his external defibrillator then collapsed on the grass. AOX4 at baseline. Hx of CHF. VS WNL. BGL 156. Upon arrival to ED pt confused, oriented to person only, trying to get out of bed, vomit x 1. Coronavirus screen: At this time, the client does not indicate any symptoms associated with coronavirus-19. Ebola Screen: No symptoms or risks identified at this time. Initial Sepsis Screen: Does the patient meet any 2 criteria? No. Patient's initial sepsis screen is negative. Does the patient have a suspected source of infection? No. Patient's initial sepsis screen is negative. Risk Assessment: Do you want to hurt yourself or someone else? Patient reports no desire to harm self or others. Onset of symptoms was June 20, 2023 at 04:00. 12:22 Method Of Arrival: EMS: [facility] 12:22 Acuity: MORIAH 2 hb Triage Assessment: 12:25 General: Appears in no apparent distress. ill, Behavior is restless, uncooperative. hb Pain: Unable to use pain scale. FLACC scale score is 6 out of 10. EENT: No deficits noted. No signs and/or symptoms were reported regarding the EENT system. Neuro: Level of Consciousness is lethargic, Oriented to person. Cardiovascular: Patient's skin is warm and dry. Respiratory: Respiratory effort is even, unlabored, Respiratory pattern is regular, symmetrical. GI: Pt is actively vomiting undigested food. : No signs and/or symptoms were reported regarding the genitourinary system. Derm: Skin is dry, Skin is pale, Skin temperature is warm. Musculoskeletal: No signs and/or symptoms reported regarding the musculoskeletal system. Historical: - Allergies: 12:50 PENICILLINS; hb 12:50 steroids; hb - PMHx: 12:50 Congestive heart failure; Hypertensive disorder; hb - Immunization history:: Adult Immunizations unknown. - Social history:: Smoking status: unknown. Screenin:46 [facility] ED Fall Risk Assessment (Adult) Score/Fall Risk Level 3 or more points = High hb Risk Oriented to surroundings, Maintained a safe environment, Educated pt \T\ family on fall prevention, incl call for assistance when getting out of bed, Assessed \T\ reinforced patient's understanding of fall precautions. Abuse screen: Denies threats or abuse. Denies injuries from another. Nutritional screening: No deficits noted. Tuberculosis screening: No symptoms or risk factors identified. Assessment: 11:34 Reassessment: Pt vomit x 1, clutching head, reports severe headache. JUAN goodman notified. 12:26 General: See triage assessment . hb 12:46 Reassessment: Pt confused, trying to climb out of bed, not following directions, moved hb to room for closer observation. Charge Nurse Kristen GARCIA and SUBSTATION ELECTRICIAN Marian do. 12:48 Reassessment: Pt to CT. hb 14:09 Reassessment: Patient appears in no apparent distress at this time. VS WNL. hb 15:55 Reassessment: Attempted to call report to [facility], was asked to call back in 10 minutes due ko1 to the receiving nurse was discharging a patient.. 16:11 Reassessment: Attempted to call report, no answer at receiving. ko1 16:15 Reassessment: Called transfer center due to not being able to give report, transferred ko1 to the unit and was placed on hold. Two different people came to the phone and placed me back on hold. I stayed on hold for 20 minutes. Unable to continue to hold due to needing to take care of other patients. [facility] is here to get patient. Informed them of report situation. Vital Signs: 12:22 BP 143 / 102; Pulse 90; Resp 15; Temp 98.3; Pulse Ox 99% on R/A; Pain 6/10; hb 13:30 BP 146 / 97; Pulse 95; Resp 15; Pulse Ox 100% on R/A; hb 14:09 BP 124 / 78; Pulse 93; Resp 14; Pulse Ox 99% ; hb 15:07 Pulse 99; Resp 18; Pulse Ox 100% on 2 lpm NC; ko1 15:28 BP 151 / 98; Pulse 98; Resp 17; Pulse Ox 99% on 2 lpm NC; ko1 16:37 BP 154 / 99; Pulse 101; Resp 18; Pulse Ox 97% on 2 lpm NC; ko1 12:22 Pain Scale: Non-Verbal hb [place] Coma Score: 12:22 Eye Response: spontaneous(4). Motor Response: localizes pain(5). Verbal Response: jh7 confused(4). Total: 13. NIH Stroke Scale Scores: 12:22 NIHSS Score: [address] [facility] ED Course: 12:22 Patient arrived in ED. [facility] 12:22 Marian Whitman FNP [facility] 12:22 Julito Ann MD is Attending Physician. 7 12:25 Arm band placed on. hb 12:32 Inserted saline lock: 18 gauge in right forearm, using aseptic technique. Blood hb collected. 12:41 Katie Ball, RN is Primary Nurse. ko1 12:41 Basic Metabolic Panel Sent. ko1 12:41 CBC with Diff Sent. ko1 12:41 Hepatic Function Sent. ko1 12:41 High Sensitivity Troponin Sent. ko1 12:41 Magnesium Sent. ko1 12:41 Protime (+inr) Sent. ko1 12:41 Ptt, Activated Sent. ko1 12:41 Blood Culture Adult (2) Sent. ko1 12:41 Salicylate Sent. ko1 12:41 Tylenol Level Sent. ko1 12:41 Ethanol Sent. ko1 12:46 Triage completed. hb 12:50 Patient has correct armband on for positive identification. hb 13:00 CT Stroke Brain w/o Contrast In Process Unspecified. EDMS 13:00 CT Head Angio In Process Unspecified. EDMS 13:00 CT Neck Angio In Process Unspecified. EDMS 13:41 Stroke CXR 1 View In Process Unspecified. EDMS 14:28 Yan Valenzuela is Hospitalizing Provider. 7 14:48 initiated a transfer with Hayley Merchant Rn from the [facility] Transfer [facility] at the request of the hospitalist. 15:[address] Alba the hospitalist clay pigeon loader for [facility] with Marian Ken for patient transfer consultation. 15:21 Warm blanket given. mb4 15:[address] Alba at [facility]. Admin approval provided by ede Kern RN. 16:37 No provider procedures requiring assistance completed. Patient transferred, IV remains ko1 in place. 16:37 Provided Education on: NA. ko1 Administered Medications: 12:35 Drug: Ondansetron IVP 4 mg IVP once; over 2 minutes Route: IVP; Site: right forearm; ko1 12:39 Drug: Ativan IVP 2 mg IVP once Route: IVP; Site: right forearm; ko1 16:38 Drug: Ativan IVP 2 mg IVP once Route: IVP; Site: right forearm; hb Medication: 12:50 VIS not applicable for this client. hb Outcome: 14:30 Decision to Hospitalize by Provider. [facility] 14:38 ER care complete, transfer ordered by . [facility] 16:37 Transferred by ground [facility] to [facility], Transfer ko1 form completed. X-rays sent w/ patient. 16:37 Condition: stable 16:37 Discharge instructions given to EMS, Instructed on the need for transfer, Demonstrated understanding of instructions, 16:39 Patient left the ED. ko1 NIH Stroke Scale - NIH Stroke Score Date: 06/20/2023 Time: 12:22 Total Score = 9 10. Dysarthria (speech clarity - read or repeat words) - 1(Mild to Moderate) 11. Extinction and Inattention (visual/tactile/auditory/spatial/personal) - 0(No abnormality) 1a. Level of Consciousness (LOC) - 0(Alert) 1b. Level of Consciousness (LOC) (Month \T\ Age) - 2(Neither) 1c. LOC Commands (Open \T\ Closes Eyes/Gear Cutting Machine Set Up Operator) - 2(Neither) 2. Best Gaze (Lateral Gaze Paresis) - 0(Normal) 3. Visual Field Loss - 0(No visual loss) 4. Facial Palsy - 0(Normal) 5a. Left Arm: Motor (10-second hold) - 1(Drift) 5b. Right Arm: Motor (10-second hold) - 1(Drift) 6a. Left Leg: Motor (5-second hold - always test supine) - (No drift) 6b. Right Leg: Motor (5-second hold - always test supine) - 1(Drift) 7. Limb Ataxia (finger/nose \T\ heel/martinez - test with eyes open) - 0(Absent) 8. Sensory Loss (pinprick arms/legs/face) - 0(Normal) 9. Best Language: Aphasia (description/naming/reading) - 1(Mild to moderate aphasia) Initials: jh7 Signatures: Dispatcher [employer] Kaia Merritt RN RN Breana Salazar Mackenzie mb4 Marian Whitman, PIANO TECHNICIAN PIANO TECHNICIAN 7 Katie Ball RN RN ko1 Corrections: (The following items were deleted from the chart) 12:36 12:32 The history from the nurse's notes was reviewed and I agree with what is jh7 documented. jh7
--- NOTE | 2023-06-20 14:30 | EDPHYS ---
Physician Documentation [facility] Name: Buddy Franklin Jr Age: 63 yrs Sex: Male : 1960 Arrival Date: 06/20/2023 Time: 12:21 Bed 3 Private MD: ED Physician Julito Ann HPI: 06/20 12:22 This 63 yrs old Male presents to ER via Unassigned with complaints of AMS. [facility] 12:22 The patient presents with agitation, confusion, disorientation, to place, to time. jh Onset: The symptoms/episode began/occurred at 04:00. 12:22 Possible causes: CVA or TIA, the patient woke up with the symptoms, at 4am. Associated [facility] signs and symptoms: Pertinent positives: agitation, headache, nausea, vomiting. Current symptoms: In the emergency department the patient's symptoms are unchanged from the initial presentation. Patient's baseline: Neuro: alert and fully oriented, Motor: no deficits, Ambulation: walks without assistance, Speech: normal, The patient has a previous history of CHF. 12:22 62-year-old male presents to the ER with altered mental status. The patient's janice states that the patient began acting strange at 4 AM. A few hours later he got out of the shower, took off his external defibrillator, and collapsed. EMS reports that the patient was sitting in a chair confused and disoriented upon arrival. The patient has a history of CHF, CAD, and hypertension. He had an angiogram in 2020. He was also hospitalized here on May 20 for NSTEMI and CHF exacerbation.. Historical: - Allergies: 12:50 PENICILLINS; hb 12:50 steroids; hb - PMHx: 12:50 Congestive heart failure; Hypertensive disorder; hb - Immunization history:: Adult Immunizations unknown. - Social history:: Smoking status: unknown. ROS: 12:22 Constitutional: Negative for fever, chills, and weight loss, Eyes: Negative for injury, jh7 pain, redness, and discharge, Neck: Negative for injury, pain, and swelling, Cardiovascular: Negative for chest pain, palpitations, and edema, Respiratory: Negative for shortness of breath, cough, wheezing, and pleuritic chest pain, Back: Negative for injury and pain, MS/Extremity: Negative for injury and deformity, Skin: Negative for injury, rash, and discoloration, 12:22 Abdomen/GI: Positive for nausea and vomiting, Negative for abdominal pain, black/tarry stool, 12:22 Neuro: Positive for altered mental status, gait disturbance, headache, syncope, Negative for 12:22 All other systems are negative, Exam: 12:22 Eyes: Pupils equal round and reactive to light, extra-ocular motions intact. Lids and jh7 lashes normal. Conjunctiva and sclera are non-icteric and not injected. Cornea within normal limits. Periorbital areas with no swelling, redness, or edema. Neck: Trachea midline, no thyromegaly or masses palpated, and no cervical lymphadenopathy. Supple, full range of motion without nuchal rigidity, or vertebral point tenderness. No Meningismus. Cardiovascular: Regular rate and rhythm with a normal S1 and S2. No gallops, murmurs, or rubs. Normal PMI, no JVD. No pulse deficits. Respiratory: Lungs have equal breath sounds bilaterally, clear to auscultation and percussion. No rales, rhonchi or wheezes noted. No increased work of breathing, no retractions or nasal flaring. Back: No spinal tenderness. No costovertebral tenderness. Full range of motion. Skin: Warm, dry with normal turgor. Normal color with no rashes, no lesions, and no evidence of cellulitis. MS/ Extremity: Pulses equal, no cyanosis. Neurovascular intact. Full, normal range of motion. 12:22 Constitutional: The patient appears alert, awake, agitated, 12:22 Neuro: Orientation: to place, time, situation, Mentation: unable to follow commands, Agitated, Memory: unable to test, Confusion, Cranial nerves: unable to test, Patient is confused and not following commands, Gait: not tested. Vital Signs: 12:22 BP 143 / 102; Pulse 90; Resp 15; Temp 98.3; Pulse Ox 99% on R/A; Pain 6/10; hb 13:30 BP 146 / 97; Pulse 95; Resp 15; Pulse Ox 100% on R/A; hb 14:09 BP 124 / 78; Pulse 93; Resp 14; Pulse Ox 99% ; hb 15:07 Pulse 99; Resp 18; Pulse Ox 100% on 2 lpm NC; ko1 15:28 BP 151 / 98; Pulse 98; Resp 17; Pulse Ox 99% on 2 lpm NC; ko1 16:37 BP 154 / 99; Pulse 101; Resp 18; Pulse Ox 97% on 2 lpm NC; ko1 12:22 Pain Scale: Non-Verbal hb NIH Stroke Scale Scores: 12:22 NIHSS Score: 9 jh7 [place] Coma Score: 12:22 Eye Response: spontaneous(4). Motor Response: localizes pain(5). Verbal Response: jh7 confused(4). Total: 13. MDM: 12:22 Patient medically screened. [facility] 15:14 Differential Diagnosis: CVA, electrolyte abnormality, alcohol intoxication, jh7 hypoglycemia, intracranial bleed, overdose, pneumonia, seizure, sepsis, UTI. Data reviewed: vital signs, nurses notes, lab test result(s), EKG, radiologic studies, CT scan. Management of patient was discussed with the following: Hospitalist: Dr. Valenzuela, [facility] Hospitalist who advised transfer due to no ear mold laboratory technician/echo over the weekend and Dr. Alba, [facility] Hospitalist. I considered the following discharge prescriptions or medication management in the emergency department Medications were administered in the Emergency Department. See MAR. Care significantly affected by the following chronic conditions: Hypertension, Congestive Heart Failure. Counseling: I had a detailed discussion with the patient and/or guardian regarding the historical points, exam findings, and any diagnostic results supporting the discharge/admit diagnosis, the need to transfer to another facility, for higher level of care. Response to treatment: the patient's symptoms have mildly improved after treatment. 06/20 12:23 Order name: Basic Metabolic Panel; Complete Time: 13: [facility] 06/20 12:23 Order name: CBC with Diff; Complete Time: 13: [facility] 06/20 12:23 Order name: Hepatic Function; Complete Time: 13: [facility] 06/20 12:23 Order name: High Sensitivity Troponin; Complete Time: 13:07 [facility] 06/20 12:23 Order name: Magnesium; Complete Time: 13:07 [facility] 06/20 12:23 Order name: Protime (+inr); Complete Time: 13:06 [facility] 06/20 12:23 Order name: Ptt, Activated; Complete Time: 13: [facility] 06/20 12:24 Order name: Blood Culture Adult (2) [facility] 06/20 12:24 Order name: Salicylate; Complete Time: 13:53 [facility] 06/20 12:24 Order name: Tylenol Level; Complete Time: 13:07 [facility] 06/20 12:24 Order name: Ethanol; Complete Time: 13:06 [facility] 06/20 12:23 Order name: CT Stroke Brain w/o Contrast; Complete Time: 13:07 [facility] 06/20 12:23 Order name: Stroke CXR 1 View; Complete Time: 13:53 [facility] 06/20 12:27 Order name: CT Head Angio; Complete Time: 13:53 [facility] 06/20 12:27 Order name: CT Neck Angio; Complete Time: 13:53 [facility] 06/20 12:23 Order name: EKG; Complete Time: 12:24 [facility] 06/20 12:23 Order name: Accucheck; Complete Time: 13:03 [facility] 06/20 12:23 Order name: Cardiac monitoring; Complete Time: 12:40 [facility] 06/20 12:23 Order name: EKG - Nurse/Tech; Complete Time: 13:03 [facility] 06/20 12:23 Order name: IV Saline Lock; Complete Time: 12:40 [facility] 06/20 12:23 Order name: Labs collected and sent; Complete Time: 12:40 [facility] 06/20 12:23 Order name: NPO; Complete Time: 12:40 [facility] 06/20 12:23 Order name: O2 Per Protocol; Complete Time: 12:41 [facility] 06/20 12:23 Order name: O2 Sat Monitoring; Complete Time: 12:41 [facility] EC:26 Rate is 96 beats/min. Rhythm is regular. QRS Randall is Normal. NV interval is normal at 7 186 msec. QRS interval is prolonged at 148 msec. QT interval is normal at 412 msec. Clinical impression: Sinus rhythm with left bundle branch block. No change from previous ECG on May 20, 2023. Administered Medications: 12:35 Drug: Ondansetron IVP 4 mg IVP once; over 2 minutes Route: IVP; Site: right forearm; ko1 12:39 Drug: Ativan IVP 2 mg IVP once Route: IVP; Site: right forearm; ko1 16:38 Drug: Ativan IVP 2 mg IVP once Route: IVP; Site: right forearm; hb Disposition Summary: 06/20/23 14:38 Transfer Ordered Notes: Transfer Location: [place] [id number] Reason: Higher level of care [facility] Condition: Stable(06/20/23 14:38) [facility] Problem: new(06/20/23 14:38) [facility] Symptoms: are unchanged(06/20/23 14:38) [facility] Accepting Physician: Accepting MD(06/20/23 16:39) ko1 Diagnosis - Subsequent non-ST elevation (NSTEMI) myocardial infarction(06/20/23 14:38) 7 - Altered mental status, unspecified(06/20/23 14:38) 7 - 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 Dysarthria (speech clarity - read or repeat words) - 1(Mild to Moderate) 11. Extinction and Inattention (visual/tactile/auditory/spatial/personal) - 0(No abnormality) 1a. Level of Consciousness (LOC) - 0(Alert) 1b. Level of Consciousness (LOC) (Month \T\ Age) - 2(Neither) 1c. LOC Commands (Open \T\ Closes Eyes/Director Of Enrollment) - 2(Neither) 2. Best Gaze (Lateral Gaze Paresis) - 0(Normal) 3. Visual Field Loss - 0(No visual loss) 4. Facial Palsy - 0(Normal) 5a. Left Arm: Motor (10-second hold) - 1(Drift) 5b. Right Arm: Motor (10-second hold) - 1(Drift) 6a. Left Leg: Motor (5-second hold - always test supine) - (No drift) 6b. Right Leg: Motor (5-second hold - always test supine) - 1(Drift) 7. Limb Ataxia (finger/nose \T\ heel/martinez - test with eyes open) - 0(Absent) 8. Sensory Loss (pinprick arms/legs/face) - 0(Normal) 9. Best Language: Aphasia (description/naming/reading) - 1(Mild to moderate aphasia) Initials: [facility] Signatures: Dispatcher [employer] EDKaia Garcia RN RN hb Marian Whitman, GRADER TENDER GRADER TENDER [facility] Katie Ball RN RN ko1 Corrections: (The following items were deleted from the chart) 12:35 12:32 Possible causes: CVA or TIA, the patient woke up with the symptoms, at [facility] 4am, [facility] 12:35 12:32 Associated signs and symptoms: Pertinent positives: agitation, headache, [facility] nausea, vomiting, [facility] 12:35 12:32 Current symptoms: In the emergency department the patient's symptoms are [facility] unchanged from the initial presentation, [facility] 12:35 12:32 Patient's baseline: Neuro: alert and fully oriented, Motor: no deficits, [facility] Ambulation: walks without assistance, Speech: normal, The patient has a previous history of CHF, [facility] 12:36 12:32 The history from the nurse's notes was reviewed and I agree with what is [facility] documented. [facility] 12:41 12:26 Rate is 96 beats/min. Rhythm is regular. QRS Randall is Normal. NV interval [facility] is normal at 186 msec. QRS interval is prolonged at 148 msec. QT interval is normal at 412 msec. Clinical impression: Sinus rhythm with left bundle branch block. [facility] 14:37 14:30 Inpatient Admission [place] [id number] 14:37 14:30 Yan Valenzuela [place] [address] 14:37 14:30 Telemetry/MedSurg (Inpatient) [place] [address] 14:37 14:30 Fair [place] [address] 14:37 14:30 new [place] [address] 14:37 14:30 are unchanged [place] [address] 14:37 14:30 Standard [place] [id number] 14:37 14:30 [place] [address] 14:37 14:30 Subsequent non-ST elevation (NSTEMI) myocardial infarction [place] [address] 14:37 14:30 Altered mental status, unspecified [place] [address] 14:37 14:30 Chronic combined systolic (congestive) and diastolic (congestive) heart [facility] failure [facility] 16:39 14:38 Accepting 7 ko1
[2023-06-20 17:09] VITALS: BP 154/99; O2SAT 97
[2023-06-20 17:14] VITALS: TEMP 97.6
--- NOTE | 2023-06-24 17:06 | EKG ---
Test Date: 2023-06-20 Test Time: 12:26:07 [employer] Developer: MB MEASUREMENT RESULTS: Intervals: Rate: 96 NC: 186 QRSD: 148 QT: 412 QTc: 520 [place]: P: 68 NC: 186 QRS: -66 T: 102 INTERPRETIVE STATEMENTS: Sinus rhythm with premature atrial complexes and premature ventricular complexes or fusion complexes Left bundle branch block Abnormal ECG Compared to ECG 05/30/2023 21:30:30 Atrial premature complex(es) now present Fusion complex(es) now present Left bundle-branch block now present Left-axis deviation no longer present Myocardial infarct finding no longer present Electronically Signed On 06-24-23 16:55:18 ASSISTANT STATISTICIAN by Abisai Padron
== END 2023-06-20 16:39 | disposition short-term general hospital (02) ==
LOC: ER 12:21
DX: I22.2 Subsequent non-ST elevation (NSTEMI) myocardial infarction (principal); I21.9 Acute myocardial infarction, unspecified; I50.42 Chronic combined systolic (congestive) and diastolic (congestive) heart failure; I10 Essential (primary) hypertension; R11.2 Nausea with vomiting, unspecified; R29.709 NIHSS score 9; Z88.0 Allergy status to penicillin; Z88.8 Allergy status to other drugs, medicaments and biological substances
CPT/HCPCS: 93005; 87040 ×2; 85025; 80048; 36415; 83735; 85610; 82565; 80076; 85730; 84484; 70496; 70498; 70450; 71045; 96375; 96374; 99285; 80143; 80179; 82077; Q9967; J2405